=== PATIENT | male | born 1965 | race Caucasian/White ===

== ENCOUNTER 2017-01-14 14:08 | Inpatient (IN) | payer MEDICAID, OTHER ==
[~2017-01-14] VITALS: Ht 167.6 cm; Wt 101.9 kg
[~2017-01-14 14:08] MED LIST: CITA10TA68 PO; FLUP10 PO; IPRA4AER IH; METF10002 PO; TRIH5TAB2 PO
[2017-01-14] MEDS ORDERED: ARIP15TA2 PO (14:21)
[2017-01-14] MEDS ORDERED: OLAN10TA3 PO ×2 (14:21)
[2017-01-14] MEDS ORDERED: HALO2 PO (14:21)
[2017-01-14] MEDS ORDERED: DIVA500T35 PO (14:21)
[2017-01-14] MEDS ORDERED: DIPH50 PO (14:21)
[2017-01-14] MEDS ORDERED: RISP3 PO (14:21)
[2017-01-14 14:54] LABS: BASOPHILS # (AUTO) 0.05 K/uL (0.00-0.20); BASOPHILS % (AUTO) 0.6 % (0.0-2.0); EOSINOPHILS # (AUTO) 0.18 K/uL (0.00-0.70); EOSINOPHILS % (AUTO) 2.39 % (1.0-6.0); HEMATOCRIT 41.4 % (41-53); HEMOGLOBIN 14.4 g/dL (13.5-17.5); LYMPHOCYTES # (AUTO) 2.9 K/uL (1.0-4.8); LYMPHOCYTES % (AUTO) 38.3 % (22.0-44.0); MEAN CORPUSCULAR HEMOGLOBIN 31.7 pg (26.0-34.0); MEAN CORPUSCULAR HGB CONC 34.7 G/dL (31.0-37.0); MEAN CORPUSCULAR VOLUME 91 fL (80-100); MONOCYTES # (AUTO) 0.4 K/uL (0.1-1.0); MONOCYTES % (AUTO) 5.8 % (2.0-9.0); NEUTROPHILS % (AUTO) 52.9 % (40.0-70.0); PLATELET COUNT (AUTO) 123 K/uL (150-450); RED BLOOD CELL COUNT(AUTO) 4.54 MIL/uL (4.50-5.90); RED CELL DISTRIBUTION WIDTH 16.2 % (11.5-14.5); WHITE BLOOD COUNT (AUTO) 7.6 K/uL (4.5-11.0)
[2017-01-14 15:07] LABS: ANION GAP 6 mmol/L (8-16); CALCIUM, TOTAL 8.5 mg/dL (8.8-10.5); CARBON DIOXIDE 32 mmol/L (22-29); CHLORIDE 107 mmol/L (98-107); CREATININE 1.05 mg/dL (0.60-1.30); GLOMERULAR FILTR. RATE CALC > 60 mL/min (>60); POTASSIUM 4.1 mmol/L (3.5-5.1); SODIUM SERUM 145 mmol/L (136-145); UREA NITROGEN, BLOOD 11 mg/dL (7-18)
[2017-01-14 15:14] LABS: ALANINE AMINOTRANSFERASE 11 U/L (12-78); ALBUMIN 3.6 g/dL (3.4-5.0); ASPARTATE AMINOTRANSFERASE 8 U/L (15-37); BILIRUBIN,TOTAL 0.2 mg/dL (0.1-1.0); TOTAL PROTEIN, SERUM 6.8 g/dL (6.4-8.2)
[2017-01-14 17:06] VITALS: BP 147/86
[2017-01-14] MEDS: OLANZapine 10 MG TABLET PO SCH (19:14)
[2017-01-14] MEDS: DiphenhydrAMINE HCL 25 MG CAPSULE PO SCH (19:14)
[2017-01-14] MEDS: DIVALPROEX SODIUM 500 MG ER TABLET PO SCH (19:14)
[2017-01-15 05:43] LABS: GLUCOSE COMMENT 1 Received Meds; GLUCOSE,POINT OF CARE 94 MG/DL (70-110)
[2017-01-15] MEDS ORDERED: PNEUMOCOCCAL VACCINE POLYVALENT 0.5 ML VIAL [PPSV23] IM ONE (05:45)
[2017-01-15 08:00] LABS: CHOL/HDL RATIO 4.2 (4.2-7.3); THYROID STIMULATING HORMONE 2.06 uIU/mL (0.36-3.74)
[2017-01-15 08:15] VITALS: BP 160/94
[2017-01-15] MEDS: DIVALPROEX SODIUM 500 MG ER TABLET PO SCH ×2 (09:09→17:19)
[2017-01-15] MEDS: DiphenhydrAMINE HCL 25 MG CAPSULE PO SCH ×2 (09:09→17:19)
[2017-01-15] MEDS: FLUoxetine HCL 20 MG CAPSULE PO SCH (09:09)
[2017-01-15] MEDS: OLANZapine 10 MG TABLET PO SCH ×2 (09:09→17:19)
[2017-01-15] MEDS ORDERED: ACETAMINOPHEN 325 MG TABLET PO PRN (17:00)
[2017-01-15] MEDS ORDERED: ALBUTEROL SULFATE/IPRATROPIUM 100-20 MCG/SPRAY 4 GM INHALER IH PRN (17:00)
[2017-01-15] MEDS ORDERED: IBUPROFEN 400 MG TABLET PO PRN (17:00)
[2017-01-15] MEDS ORDERED: ZOLPIDEM TARTRATE 10 MG TABLET PO PRN (17:15)
[2017-01-15] MEDS ORDERED: HALOPERIDOL 5 MG TABLET PO PRN (17:15)
[2017-01-16 08:15] VITALS: BP 121/66
[2017-01-16] MEDS: FLUoxetine HCL 20 MG CAPSULE PO SCH (10:47)
[2017-01-16] MEDS: DiphenhydrAMINE HCL 25 MG CAPSULE PO SCH ×2 (10:47→16:26)
[2017-01-16] MEDS: DIVALPROEX SODIUM 500 MG ER TABLET PO SCH ×2 (10:47→16:26)
[2017-01-16] MEDS: OLANZapine 10 MG TABLET PO SCH ×2 (10:47→16:26)
[2017-01-16] MEDS: AmLODIPine BESYLATE 2.5 MG TABLET PO SCH (10:47)
[2017-01-16 16:28] VITALS: BP 140/91
[2017-01-16] MEDS: LORazepam 2 MG TABLET PO PRN (20:25)
[2017-01-17 06:19] LABS: BASOPHILS % (AUTO) 0.3 % (0.0-2.0); EOSINOPHILS % (AUTO) 1.8 % (1.0-6.0); HEMATOCRIT 44.2 % (41-53); HEMOGLOBIN 15.2 g/dL (13.5-17.5); LYMPHOCYTES # (AUTO) 3.2 K/uL (1.0-4.8); LYMPHOCYTES % (AUTO) 42.1 % (22.0-44.0); MEAN CORPUSCULAR HEMOGLOBIN 31.5 pg (26.0-34.0); MEAN CORPUSCULAR HGB CONC 34.3 G/dL (31.0-37.0); MEAN CORPUSCULAR VOLUME 92 fL (80-100); MONOCYTES # (AUTO) 0.5 K/uL (0.1-1.0); MONOCYTES % (AUTO) 6.3 % (2.0-9.0); NEUTROPHILS # (AUTO) 3.8 K/uL (1.8-7.7); NEUTROPHILS % (AUTO) 49.5 % (40.0-70.0); PLATELET COUNT (AUTO) 137 K/uL (150-450); RED BLOOD CELL COUNT(AUTO) 4.81 MIL/uL (4.50-5.90); RED CELL DISTRIBUTION WIDTH 15.9 % (11.5-14.5); WHITE BLOOD COUNT (AUTO) 7.7 K/uL (4.5-11.0)
[2017-01-17 06:27] LABS: ALANINE AMINOTRANSFERASE 15 U/L (12-78); ALBUMIN 3.4 g/dL (3.4-5.0); ANION GAP 4 mmol/L (8-16); ASPARTATE AMINOTRANSFERASE 11 U/L (15-37); BILIRUBIN,TOTAL 0.2 mg/dL (0.1-1.0); CALCIUM, TOTAL 8.6 mg/dL (8.8-10.5); CARBON DIOXIDE 34 mmol/L (22-29); CHLORIDE 103 mmol/L (98-107); CREATININE 0.87 mg/dL (0.60-1.30); GLOMERULAR FILTR. RATE CALC > 60 mL/min (>60); POTASSIUM 4.4 mmol/L (3.5-5.1); SODIUM SERUM 141 mmol/L (136-145); TOTAL PROTEIN, SERUM 6.3 g/dL (6.4-8.2); UREA NITROGEN, BLOOD 21 mg/dL (7-18); VALPROIC ACID 51 mcg/mL (50-100)
[2017-01-17 08:15] VITALS: BP 139/95
[2017-01-17] MEDS: DIVALPROEX SODIUM 500 MG ER TABLET PO SCH ×2 (08:19→16:31)
[2017-01-17] MEDS: AmLODIPine BESYLATE 2.5 MG TABLET PO SCH (08:19)
[2017-01-17] MEDS: FLUoxetine HCL 20 MG CAPSULE PO SCH (08:19)
[2017-01-17] MEDS: OLANZapine 10 MG TABLET PO SCH ×2 (08:19→16:31)
[2017-01-17] MEDS: DiphenhydrAMINE HCL 25 MG CAPSULE PO SCH ×2 (08:19→16:31)
[2017-01-17 12:17] LABS: GLUCOSE COMMENT 1 FASTING; GLUCOSE,POINT OF CARE 102 MG/DL (70-110)
[2017-01-17 17:16] VITALS: BP 131/91
[2017-01-18 06:04] LABS: GLUCOSE COMMENT 1 FASTING; GLUCOSE,POINT OF CARE 84 MG/DL (70-110)
[2017-01-18 08:30] VITALS: BP 140/96
[2017-01-18] MEDS: FLUoxetine HCL 20 MG CAPSULE PO SCH (08:30)
[2017-01-18] MEDS: AmLODIPine BESYLATE 2.5 MG TABLET PO SCH (08:31)
[2017-01-18] MEDS: DIVALPROEX SODIUM 500 MG ER TABLET PO SCH ×2 (08:31→16:17)
[2017-01-18] MEDS: OLANZapine 10 MG TABLET PO SCH ×2 (08:31→16:17)
[2017-01-18] MEDS: DiphenhydrAMINE HCL 25 MG CAPSULE PO SCH ×2 (08:31→16:17)
[2017-01-18 11:57] LABS: GLUCOSE,POINT OF CARE 93 MG/DL (70-110)
[2017-01-18 17:16] VITALS: BP 131/78
[2017-01-19 05:52] LABS: GLUCOSE,POINT OF CARE 97 MG/DL (70-110)
[2017-01-19 08:11] VITALS: BP 121/79
[2017-01-19] MEDS: FLUoxetine HCL 20 MG CAPSULE PO SCH (08:47)
[2017-01-19] MEDS: DiphenhydrAMINE HCL 25 MG CAPSULE PO SCH ×2 (08:47→16:07)
[2017-01-19] MEDS: DIVALPROEX SODIUM 500 MG ER TABLET PO SCH ×2 (08:48→16:07)
[2017-01-19] MEDS: AmLODIPine BESYLATE 2.5 MG TABLET PO SCH (08:48)
[2017-01-19] MEDS: OLANZapine 10 MG TABLET PO SCH ×2 (08:48→16:07)
[2017-01-19 12:32] LABS: GLUCOSE COMMENT 1 Received Meds; GLUCOSE,POINT OF CARE 110 MG/DL (70-110)
[2017-01-19 16:45] VITALS: BP 121/88
[2017-01-20 06:02] LABS: GLUCOSE,POINT OF CARE 119 MG/DL (70-110)
[2017-01-20 08:09] VITALS: BP 122/79
[2017-01-20] MEDS: DIVALPROEX SODIUM 500 MG ER TABLET PO SCH ×2 (09:30→16:27)
[2017-01-20] MEDS: FLUoxetine HCL 20 MG CAPSULE PO SCH (09:31)
[2017-01-20] MEDS: DiphenhydrAMINE HCL 25 MG CAPSULE PO SCH ×2 (09:31→16:27)
[2017-01-20] MEDS: OLANZapine 10 MG TABLET PO SCH ×2 (09:31→16:28)
[2017-01-20] MEDS: AmLODIPine BESYLATE 2.5 MG TABLET PO SCH (09:32)
[2017-01-20 16:32] LABS: GLUCOSE,POINT OF CARE 104 MG/DL (70-110)
[2017-01-20 18:35] VITALS: BP 105/60
[2017-01-20 21:27] LABS: GLUCOSE,POINT OF CARE 120 MG/DL (70-110)
[2017-01-21 06:08] LABS: GLUCOSE,POINT OF CARE 102 MG/DL (70-110)
[2017-01-21 08:17] VITALS: BP 122/77
[2017-01-21] MEDS: DiphenhydrAMINE HCL 25 MG CAPSULE PO SCH ×2 (08:59→17:07)
[2017-01-21] MEDS: FLUoxetine HCL 20 MG CAPSULE PO SCH (09:00)
[2017-01-21] MEDS: OLANZapine 10 MG TABLET PO SCH ×2 (09:00→17:07)
[2017-01-21] MEDS: AmLODIPine BESYLATE 2.5 MG TABLET PO SCH (09:00)
[2017-01-21] MEDS: DIVALPROEX SODIUM 500 MG ER TABLET PO SCH ×2 (09:00→17:07)
[2017-01-21 17:00] VITALS: BP 139/98
[2017-01-22 08:47] VITALS: BP 118/76
[2017-01-22] MEDS: FLUoxetine HCL 20 MG CAPSULE PO SCH (09:04)
[2017-01-22] MEDS: DIVALPROEX SODIUM 500 MG ER TABLET PO SCH ×2 (09:04→16:29)
[2017-01-22] MEDS: OLANZapine 10 MG TABLET PO SCH ×2 (09:04→16:30)
[2017-01-22] MEDS: AmLODIPine BESYLATE 2.5 MG TABLET PO SCH (09:04)
[2017-01-22] MEDS: DiphenhydrAMINE HCL 25 MG CAPSULE PO SCH ×2 (09:04→16:30)
[2017-01-22 17:06] VITALS: BP 124/82
[2017-01-23 08:39] VITALS: BP 139/84
[2017-01-23] MEDS: OLANZapine 10 MG TABLET PO SCH ×2 (09:01→16:31)
[2017-01-23] MEDS: DiphenhydrAMINE HCL 25 MG CAPSULE PO SCH ×2 (09:01→16:32)
[2017-01-23] MEDS: DIVALPROEX SODIUM 500 MG ER TABLET PO SCH ×2 (09:01→16:32)
[2017-01-23] MEDS: AmLODIPine BESYLATE 2.5 MG TABLET PO SCH (09:02)
[2017-01-23] MEDS: FLUoxetine HCL 20 MG CAPSULE PO SCH (09:02)
[2017-01-23 16:30] VITALS: BP 138/92
[2017-01-24] MEDS: AmLODIPine BESYLATE 2.5 MG TABLET PO SCH (07:57)
[2017-01-24] MEDS: OLANZapine 10 MG TABLET PO SCH ×2 (07:57→16:18)
[2017-01-24] MEDS: DiphenhydrAMINE HCL 25 MG CAPSULE PO SCH ×2 (07:57→16:18)
[2017-01-24] MEDS: DIVALPROEX SODIUM 500 MG ER TABLET PO SCH ×2 (07:57→16:18)
[2017-01-24] MEDS: FLUoxetine HCL 20 MG CAPSULE PO SCH (07:57)
[2017-01-24 09:17] VITALS: BP 125/81
[2017-01-24 16:37] VITALS: BP 109/68
[2017-01-25] MEDS ORDERED: DIVA500T52 PO (08:14)
[2017-01-25] MEDS ORDERED: DIPH50 PO (08:15)
[2017-01-25] MEDS ORDERED: OLAN10TA3 PO (08:16)
[2017-01-25] MEDS ORDERED: FLUO-191 PO (08:16)
[2017-01-25] MEDS ORDERED: AMLO2.5T PO (08:19)
[2017-01-25 08:45] VITALS: BP 112/68
[2017-01-25] MEDS: DiphenhydrAMINE HCL 25 MG CAPSULE PO SCH ×2 (09:06→16:02)
[2017-01-25] MEDS: AmLODIPine BESYLATE 2.5 MG TABLET PO SCH (09:07)
[2017-01-25] MEDS: DIVALPROEX SODIUM 500 MG ER TABLET PO SCH ×2 (09:07→16:02)
[2017-01-25] MEDS: FLUoxetine HCL 20 MG CAPSULE PO SCH (09:07)
[2017-01-25] MEDS: OLANZapine 10 MG TABLET PO SCH ×2 (09:07→16:02)
[2017-01-25 18:56] VITALS: BP 105/59
[2017-01-25] MEDS: LORazepam 2 MG TABLET PO PRN (20:23)
[2017-01-26 08:43] VITALS: BP 106/67
[2017-01-26] MEDS: AmLODIPine BESYLATE 2.5 MG TABLET PO SCH (08:45)
[2017-01-26] MEDS: FLUoxetine HCL 20 MG CAPSULE PO SCH (08:45)
[2017-01-26] MEDS: DIVALPROEX SODIUM 500 MG ER TABLET PO SCH (08:45)
[2017-01-26] MEDS: OLANZapine 10 MG TABLET PO SCH (08:45)
[2017-01-26] MEDS: DiphenhydrAMINE HCL 25 MG CAPSULE PO SCH (08:45)
== END 2017-01-26 14:02 | disposition home or self-care (01) | DRG 750 ==
LOC: EMS 14:09 → 3EI 16:20
PROVIDERS: ADMIT Psychiatry & Neurology Psychiatry; ATTEND Psychiatry & Neurology Psychiatry
DX: F20.0 Paranoid schizophrenia (principal); R45.850 Homicidal ideations; R45.851 Suicidal ideations; I10 Essential (primary) hypertension; E11.9 Type 2 diabetes mellitus without complications; B18.2 Chronic viral hepatitis C; F41.9 Anxiety disorder, unspecified; J45.909 Unspecified asthma, uncomplicated; Z28.21 Immunization not carried out because of patient refusal
CPT/HCPCS: 82962; 84436; 84439; 84443; 99285; G0480

== ENCOUNTER 2017-01-31 10:40 | Inpatient (IN) | payer MEDICAID, OTHER ==
[~2017-01-31] VITALS: Ht 170.2 cm; Wt 108.0 kg
[~2017-01-31 10:40] MED LIST changes: +AMLO2.5T PO; -CITA10TA68 PO; +DIPH50 PO; +DIVA500T52 PO; +FLUO-191 PO; -FLUP10 PO; -IPRA4AER IH; -METF10002 PO; +OLAN10TA3 PO; -TRIH5TAB2 PO
[2017-01-31 12:04] LABS: BASOPHILS % (AUTO) 0.5 % (0.0-2.0); EOSINOPHILS % (AUTO) 1.2 % (1.0-6.0); HEMATOCRIT 40.2 % (41-53); HEMOGLOBIN 13.9 g/dL (13.5-17.5); LYMPHOCYTES # (AUTO) 2.3 K/uL (1.0-4.8); LYMPHOCYTES % (AUTO) 25.7 % (22.0-44.0); MEAN CORPUSCULAR HEMOGLOBIN 31.8 pg (26.0-34.0); MEAN CORPUSCULAR HGB CONC 34.6 G/dL (31.0-37.0); MEAN CORPUSCULAR VOLUME 92 fL (80-100); MONOCYTES # (AUTO) 0.4 K/uL (0.1-1.0); MONOCYTES % (AUTO) 4.4 % (2.0-9.0); NEUTROPHILS # (AUTO) 6.1 K/uL (1.8-7.7); NEUTROPHILS % (AUTO) 68.2 % (40.0-70.0); PLATELET COUNT (AUTO) 186 K/uL (150-450); RED BLOOD CELL COUNT(AUTO) 4.37 MIL/uL (4.50-5.90); RED CELL DISTRIBUTION WIDTH 15.3 % (11.5-14.5); WHITE BLOOD COUNT (AUTO) 8.9 K/uL (4.5-11.0)
[2017-01-31 12:13] LABS: ANION GAP 5 mmol/L (8-16); CALCIUM, TOTAL 8.5 mg/dL (8.8-10.5); CARBON DIOXIDE 30 mmol/L (22-29); CHLORIDE 104 mmol/L (98-107); GLOMERULAR FILTR. RATE CALC > 60 mL/min (>60); POTASSIUM 3.9 mmol/L (3.5-5.1); SODIUM SERUM 139 mmol/L (136-145); UREA NITROGEN, BLOOD 12 mg/dL (7-18)
[2017-01-31 12:21] LABS: ALANINE AMINOTRANSFERASE 18 U/L (12-78); ALBUMIN 3.6 g/dL (3.4-5.0); ASPARTATE AMINOTRANSFERASE 11 U/L (15-37); BILIRUBIN,TOTAL 0.2 mg/dL (0.1-1.0); TOTAL PROTEIN, SERUM 7.1 g/dL (6.4-8.2)
[2017-01-31] MEDS ORDERED: OLANZapine 5 MG TABLET PO ONE (12:30)
[2017-01-31] MEDS ORDERED: HALOPERIDOL 5 MG TABLET PO PRN (13:00)
[2017-01-31] MEDS ORDERED: ZOLPIDEM TARTRATE 10 MG TABLET PO PRN (13:00)
[2017-01-31] MEDS ORDERED: LORazepam 2 MG TABLET PO PRN (13:00)
[2017-01-31 18:10] VITALS: BP 120/87
[2017-01-31] MEDS: DiphenhydrAMINE HCL 25 MG CAPSULE PO SCH (18:28)
[2017-01-31] MEDS: DIVALPROEX SODIUM 500 MG ER TABLET PO SCH (18:28)
[2017-01-31] MEDS: OLANZapine 10 MG TABLET PO SCH (18:28)
[2017-02-01 00:30] VITALS: BP 110/69
[2017-02-01] MEDS ORDERED: INFLUENZA VIRUS VACCINE QVS 2017-18 (3YR+)/PF 60 MCG/0.5 ML SYRINGE IM ONE (04:30)
[2017-02-01] MEDS: DiphenhydrAMINE HCL 25 MG CAPSULE PO SCH ×2 (09:09→16:19)
[2017-02-01] MEDS: DIVALPROEX SODIUM 500 MG ER TABLET PO SCH ×2 (09:09→16:19)
[2017-02-01] MEDS: OLANZapine 10 MG TABLET PO SCH ×2 (09:10→16:20)
[2017-02-01] MEDS: FLUoxetine HCL 20 MG CAPSULE PO SCH (09:10)
[2017-02-01 09:54] VITALS: BP 134/71
[2017-02-01] MEDS ORDERED: ACETAMINOPHEN 325 MG TABLET PO PRN (12:30)
[2017-02-01 14:42] VITALS: BP 129/82
[2017-02-01] MEDS: IBUPROFEN 400 MG TABLET PO PRN ×2 (14:45→23:43)
[2017-02-01 16:16] VITALS: BP 116/75
[2017-02-02 00:45] VITALS: BP 117/73
[2017-02-02 08:12] LABS: CHOL/HDL RATIO 3.6 (4.2-7.3); THYROID STIMULATING HORMONE 3.38 uIU/mL (0.36-3.74)
[2017-02-02 08:14] LABS: HEMOGLOBIN A1C 5.8 % (4.5-6.2)
[2017-02-02 08:20] VITALS: BP 127/69
[2017-02-02] MEDS: DiphenhydrAMINE HCL 25 MG CAPSULE PO SCH ×2 (09:11→16:20)
[2017-02-02] MEDS: DIVALPROEX SODIUM 500 MG ER TABLET PO SCH ×2 (09:11→16:20)
[2017-02-02] MEDS: FLUoxetine HCL 20 MG CAPSULE PO SCH (09:11)
[2017-02-02] MEDS: OLANZapine 10 MG TABLET PO SCH ×2 (09:11→16:21)
[2017-02-02] MEDS: AmLODIPine BESYLATE 2.5 MG TABLET PO SCH (09:12)
[2017-02-02] MEDS: IBUPROFEN 400 MG TABLET PO PRN ×2 (09:35→18:27)
[2017-02-02 16:45] VITALS: BP 120/74
[2017-02-03] MEDS: IBUPROFEN 400 MG TABLET PO PRN (05:59)
[2017-02-03] MEDS: DiphenhydrAMINE HCL 25 MG CAPSULE PO SCH ×2 (08:48→16:18)
[2017-02-03] MEDS: DIVALPROEX SODIUM 500 MG ER TABLET PO SCH ×2 (08:48→16:18)
[2017-02-03] MEDS: FLUoxetine HCL 20 MG CAPSULE PO SCH (08:48)
[2017-02-03] MEDS: OLANZapine 10 MG TABLET PO SCH ×2 (08:48→16:19)
[2017-02-03 09:00] VITALS: BP 114/78
[2017-02-03] MEDS: AmLODIPine BESYLATE 2.5 MG TABLET PO SCH (10:23)
[2017-02-03 16:34] VITALS: BP 115/68
[2017-02-04 01:34] VITALS: BP 117/80
[2017-02-04] MEDS: IBUPROFEN 400 MG TABLET PO PRN (01:42)
[2017-02-04] MEDS: DIVALPROEX SODIUM 500 MG ER TABLET PO SCH ×2 (08:02→16:43)
[2017-02-04] MEDS: AmLODIPine BESYLATE 2.5 MG TABLET PO SCH (08:02)
[2017-02-04] MEDS: DiphenhydrAMINE HCL 25 MG CAPSULE PO SCH ×2 (08:02→16:44)
[2017-02-04] MEDS: FLUoxetine HCL 20 MG CAPSULE PO SCH (08:02)
[2017-02-04] MEDS: OLANZapine 10 MG TABLET PO SCH ×2 (08:04→16:44)
[2017-02-04 08:45] VITALS: BP 121/77
[2017-02-04 16:20] VITALS: BP 121/76
[2017-02-05 06:48] VITALS: BP 116/71
[2017-02-05] MEDS: OLANZapine 10 MG TABLET PO SCH ×2 (08:53→16:23)
[2017-02-05] MEDS: DiphenhydrAMINE HCL 25 MG CAPSULE PO SCH ×2 (08:53→16:22)
[2017-02-05] MEDS: FLUoxetine HCL 20 MG CAPSULE PO SCH (08:53)
[2017-02-05] MEDS: AmLODIPine BESYLATE 2.5 MG TABLET PO SCH (08:53)
[2017-02-05] MEDS: DIVALPROEX SODIUM 500 MG ER TABLET PO SCH ×2 (08:53→16:22)
[2017-02-05 08:57] VITALS: BP 114/78
[2017-02-05 16:21] VITALS: BP 134/89
[2017-02-05 20:00] VITALS: BP 130/80
[2017-02-06 08:30] VITALS: BP 124/78
[2017-02-06] MEDS: DIVALPROEX SODIUM 500 MG ER TABLET PO SCH ×2 (08:34→17:47)
[2017-02-06] MEDS: OLANZapine 10 MG TABLET PO SCH ×2 (08:35→17:47)
[2017-02-06] MEDS: FLUoxetine HCL 20 MG CAPSULE PO SCH (08:35)
[2017-02-06] MEDS: AmLODIPine BESYLATE 2.5 MG TABLET PO SCH (08:35)
[2017-02-06] MEDS: DiphenhydrAMINE HCL 25 MG CAPSULE PO SCH ×2 (08:35→17:47)
[2017-02-06] MEDS: IBUPROFEN 400 MG TABLET PO PRN (08:36)
[2017-02-06 16:48] VITALS: BP 136/96
[2017-02-07 08:05] VITALS: BP 127/86
[2017-02-07] MEDS: DIVALPROEX SODIUM 500 MG ER TABLET PO SCH ×2 (09:48→16:21)
[2017-02-07] MEDS: DiphenhydrAMINE HCL 25 MG CAPSULE PO SCH ×2 (09:48→16:21)
[2017-02-07] MEDS: FLUoxetine HCL 20 MG CAPSULE PO SCH (09:48)
[2017-02-07] MEDS: AmLODIPine BESYLATE 2.5 MG TABLET PO SCH (09:48)
[2017-02-07] MEDS: OLANZapine 10 MG TABLET PO SCH ×2 (09:49→16:21)
[2017-02-07 19:08] VITALS: BP 133/93
[2017-02-08] MEDS: DiphenhydrAMINE HCL 25 MG CAPSULE PO SCH ×2 (08:58→16:05)
[2017-02-08] MEDS: FLUoxetine HCL 20 MG CAPSULE PO SCH (08:58)
[2017-02-08] MEDS: OLANZapine 10 MG TABLET PO SCH ×2 (08:59→16:05)
[2017-02-08] MEDS: DIVALPROEX SODIUM 500 MG ER TABLET PO SCH ×2 (08:59→16:05)
[2017-02-08] MEDS: AmLODIPine BESYLATE 2.5 MG TABLET PO SCH (08:59)
[2017-02-08 09:00] VITALS: BP 159/91
[2017-02-08 18:16] VITALS: BP 138/90
[2017-02-09 06:39] VITALS: BP 119/83
[2017-02-09 08:00] VITALS: BP 125/47
[2017-02-09] MEDS: FLUoxetine HCL 20 MG CAPSULE PO SCH (09:30)
[2017-02-09] MEDS: OLANZapine 10 MG TABLET PO SCH ×2 (09:30→16:13)
[2017-02-09] MEDS: DiphenhydrAMINE HCL 25 MG CAPSULE PO SCH ×2 (09:30→16:13)
[2017-02-09] MEDS: AmLODIPine BESYLATE 2.5 MG TABLET PO SCH (09:30)
[2017-02-09] MEDS: DIVALPROEX SODIUM 500 MG ER TABLET PO SCH ×2 (09:30→16:13)
[2017-02-09 16:31] VITALS: BP 131/77
[2017-02-10 08:00] VITALS: BP 132/77
[2017-02-10] MEDS: DIVALPROEX SODIUM 500 MG ER TABLET PO SCH ×2 (10:49→17:41)
[2017-02-10] MEDS: OLANZapine 10 MG TABLET PO SCH ×2 (10:49→17:42)
[2017-02-10] MEDS: AmLODIPine BESYLATE 2.5 MG TABLET PO SCH (10:49)
[2017-02-10] MEDS: FLUoxetine HCL 20 MG CAPSULE PO SCH (10:49)
[2017-02-10] MEDS: DiphenhydrAMINE HCL 25 MG CAPSULE PO SCH ×2 (10:50→17:42)
[2017-02-10 18:49] VITALS: BP 119/78
[2017-02-11 06:48] VITALS: BP 128/80
[2017-02-11 08:00] VITALS: BP 101/62
[2017-02-11] MEDS: FLUoxetine HCL 20 MG CAPSULE PO SCH (09:01)
[2017-02-11] MEDS: OLANZapine 10 MG TABLET PO SCH ×2 (09:01→17:35)
[2017-02-11] MEDS: DIVALPROEX SODIUM 500 MG ER TABLET PO SCH ×2 (09:01→17:35)
[2017-02-11] MEDS: DiphenhydrAMINE HCL 25 MG CAPSULE PO SCH ×2 (09:01→17:35)
[2017-02-11] MEDS: AmLODIPine BESYLATE 2.5 MG TABLET PO SCH (09:01)
[2017-02-11 16:23] VITALS: BP 117/73
[2017-02-12] MEDS: DiphenhydrAMINE HCL 25 MG CAPSULE PO SCH (10:05)
[2017-02-12] MEDS: OLANZapine 10 MG TABLET PO SCH (10:06)
[2017-02-12] MEDS: AmLODIPine BESYLATE 2.5 MG TABLET PO SCH (10:06)
[2017-02-12] MEDS: DIVALPROEX SODIUM 500 MG ER TABLET PO SCH (10:06)
[2017-02-12] MEDS: FLUoxetine HCL 20 MG CAPSULE PO SCH (10:06)
== END 2017-02-12 10:30 | disposition home or self-care (01) | DRG 750 ==
LOC: EMS 10:42 → B2S 15:58 → 3EI 02-05 18:05
PROVIDERS: ATTEND Psychiatry & Neurology Psychiatry
DX: F20.0 Paranoid schizophrenia (principal); R45.850 Homicidal ideations; R45.851 Suicidal ideations; I10 Essential (primary) hypertension; E11.9 Type 2 diabetes mellitus without complications; F10.10 Alcohol abuse, uncomplicated; J45.909 Unspecified asthma, uncomplicated; F17.200 Nicotine dependence, unspecified, uncomplicated; Z71.41 Alcohol abuse counseling and surveillance of alcoholic; Z28.21 Immunization not carried out because of patient refusal
CPT/HCPCS: 83036; 84443; 87081; 90471; 99285; G0480

== ENCOUNTER 2022-03-19 19:40 | Inpatient (IN) | payer MEDICAID, OTHER ==
[~2022-03-19] VITALS: Ht 167.6 cm; Wt 98.0 kg
[~2022-03-19 19:40] MED LIST changes: -AMLO2.5T PO; +AMLO2.5T96 PO; +DIVA-80 PO; -DIVA500T52 PO; +FLUO-177 PO; -FLUO-191 PO; -OLAN10TA3 PO; +OLAN10TA74 PO
[2022-03-19] MEDS ORDERED: HALOPERIDOL LACTATE 5 MG/ML VIAL IM ONE (22:15)
[2022-03-19] MEDS ORDERED: LORazepam 2 MG/ML VIAL IM ONE (22:15)
[2022-03-19] MEDS ORDERED: DiphenhydrAMINE HCL 50 MG/ML VIAL IM ONE (22:15)
[2022-03-19] MEDS ORDERED: CLON-592 PO (22:48)
[2022-03-19] MEDS ORDERED: DIVA-112 PO (22:48)
[2022-03-19] MEDS ORDERED: FURO40 PO (22:48)
[2022-03-19] MEDS ORDERED: METF-1211 PO (22:48)
[2022-03-19] MEDS ORDERED: ATOR40TA28 PO (22:48)
[2022-03-19] MEDS ORDERED: BECL10.6 IH (22:48)
[2022-03-19] MEDS ORDERED: QUET200T PO (22:48)
[2022-03-19] MEDS ORDERED: DIPH50CA35 PO (22:48)
[2022-03-19] MEDS ORDERED: CETI-450 PO (22:48)
[2022-03-19] MEDS ORDERED: TRAZ-257 PO (22:48)
[2022-03-19] MEDS ORDERED: METO25XL PO (22:48)
[2022-03-19] MEDS ORDERED: AMLO-258 PO (22:48)
[2022-03-19] MEDS ORDERED: HALO10TA21 PO (22:48)
[2022-03-19 23:03] LABS: BASOPHILS % (AUTO) 0.5 % (0.0-2.0); EOSINOPHILS % (AUTO) 0.9 % (1.0-6.0); HEMATOCRIT 36.3 % (41-53); HEMOGLOBIN 11.7 g/dL (13.5-17.5); LYMPHOCYTES # (AUTO) 1.9 K/uL (1.0-4.8); LYMPHOCYTES % (AUTO) 29.3 % (22.0-44.0); MEAN CORPUSCULAR HEMOGLOBIN 30.7 pg (26.0-34.0); MEAN CORPUSCULAR HGB CONC 32.3 G/dL (31.0-37.0); MEAN CORPUSCULAR VOLUME 95 fL (80-100); MONOCYTES # (AUTO) 0.4 K/uL (0.1-1.0); MONOCYTES % (AUTO) 5.7 % (2.0-9.0); NEUTROPHILS # (AUTO) 4.1 K/uL (1.8-7.7); NEUTROPHILS % (AUTO) 63.6 % (40.0-70.0); PLATELET COUNT (AUTO) 146 K/uL (150-450); RED BLOOD CELL COUNT(AUTO) 3.82 MIL/uL (4.50-5.90); RED CELL DISTRIBUTION WIDTH 14.9 % (11.5-14.5)
[2022-03-19 23:30] LABS: ANION GAP 6 mmol/L (8-16); CALCIUM, TOTAL 9.3 mg/dL (8.8-10.5); CARBON DIOXIDE 31 mmol/L (22-29); CHLORIDE 107 mmol/L (98-107); CREATININE 0.95 mg/dL (0.60-1.30); GLOMERULAR FILTR. RATE CALC > 60 mL/min (>60); GLUCOSE,RANDOM 117 mg/dL (70-110); POTASSIUM 3.4 mmol/L (3.5-5.1); SODIUM SERUM 144 mmol/L (136-145); UREA NITROGEN, BLOOD 19 mg/dL (7-18)
[2022-03-19 23:37] LABS: ALANINE AMINOTRANSFERASE 29 U/L (12-78); ALBUMIN 3.6 g/dL (3.4-5.0); ALKALINE PHOSPHATASE 80 U/L (46-116); ASPARTATE AMINOTRANSFERASE 24 U/L (15-37); BILIRUBIN,TOTAL 0.3 mg/dL (0.1-1.0); TOTAL PROTEIN, SERUM 6.7 g/dL (6.4-8.2)
[2022-03-20 00:12] LABS: COVID AG,FIA SOURCE NASOPHARYNGEAL
[2022-03-20] MEDS ORDERED: LORazepam 2 MG TABLET PO PRN (01:00)
[2022-03-20] MEDS ORDERED: ZOLPIDEM TARTRATE 10 MG TABLET PO PRN (01:00)
[2022-03-20] MEDS ORDERED: POTASSIUM CHLORIDE 20 MEQ ER TABLET PO ONE (02:00)
[2022-03-20] MEDS: HALOPERIDOL 5 MG TABLET PO PRN (02:25)
[2022-03-20 07:58] LABS: APPEARANCE,URINE CLEAR (CLEAR); BILIRUBIN,URINE NEGATIVE (NEGATIVE); GLUCOSE, URINE (UA) NEGATIVE (NEGATIVE); KETONES,URINE TRACE mg/dL (NEGATIVE); LEUKOCYTE ESTERASE ,URINE SMALL (NEGATIVE); NITRATE,URINE NEGATIVE (NEGATIVE); OCCULT BLOOD,URINE NEGATIVE (NEGATIVE); PROTEIN,URINE 30-70 mg/dL (NEGATIVE); SPECIFIC GRAVITIY, URINE 1.033 (1.003-1.030)
[2022-03-20 08:08] LABS: AMPHET/METH SCREEN,URINE NEGATIVE (NEGATIVE); BARBITURATE SCREEN, URINE NEGATIVE (NEGATIVE); BENZODIAZEPINES SCREEN,URINE NEGATIVE (NEGATIVE); CANNABINOID SCREEN,URINE NEGATIVE (NEGATIVE); COCAINE SCREEN,URINE NEGATIVE (NEGATIVE); METHADONE SCREEN, URINE NEGATIVE (NEGATIVE); OPIATE SCREEN,URINE NEGATIVE (NEGATIVE); PHENCYCLIDINE SCREEN,URINE NEGATIVE (NEGATIVE)
[2022-03-20 08:14] LABS: BACTERIA,URINE None Seen /HPF (None Seen); RBC,URINE 0-2 /HPF (0-2); SQUAMOUS EPITHELIAL CELL,UR Rare /LPF (None Seen)
[2022-03-20 08:15] LABS: CALCIUM OXALATE CRYSTALS,UR Rare /LPF (None Seen)
[2022-03-20 13:30] VITALS: BP 133/71
[2022-03-20] MEDS ORDERED: NICOTINE 21 MG/24 HOUR PATCH TD PRN (15:30)
[2022-03-20] MEDS: MetFORMIN HCL 500 MG TABLET PO SCH (17:00)
[2022-03-20] MEDS: BECLOMETHASONE DIPR HFA 40 MCG/PUFF 10.6 GM INHALER IH SCH (17:00)
[2022-03-20] MEDS: FUROSEMIDE 40 MG TABLET PO SCH (17:00)
[2022-03-20] MEDS ORDERED: PNEUMOCOCCAL VACCINE POLYVALENT 0.5 ML VIAL [PPSV23] IM. ONE (18:00)
[2022-03-20] MEDS ORDERED: INFLUENZA VIRUS VACCINE QVS 2022-23 (6MO+)/PF 60 MCG/0.5 ML SYRINGE IM. ONE (18:00)
[2022-03-20 20:49] VITALS: BP 132/68
[2022-03-20] MEDS: ATORVASTATIN CALCIUM 40 MG TABLET PO SCH (20:54)
[2022-03-21] MEDS: MetFORMIN HCL 500 MG TABLET PO SCH ×2 (06:35→17:00)
[2022-03-21 08:33] VITALS: BP 137/79
[2022-03-21] MEDS: FUROSEMIDE 40 MG TABLET PO SCH ×2 (09:00→17:00)
[2022-03-21] MEDS: BECLOMETHASONE DIPR HFA 40 MCG/PUFF 10.6 GM INHALER IH SCH ×2 (09:00→17:00)
[2022-03-21] MEDS: METOPROLOL SUCCINATE 25 MG ER TABLET PO SCH (09:00)
[2022-03-21] MEDS: CETIRIZINE HCL 10 MG TABLET PO SCH (09:00)
[2022-03-21] MEDS: AmLODIPine BESYLATE 10 MG TABLET PO SCH (09:00)
[2022-03-21] MEDS ORDERED: LOPERAMIDE HCL 2 MG CAPSULE PO PRN (16:15)
[2022-03-21] MEDS ORDERED: MAG HYDROX/AL HYDROX/SIMETH ES 30 ML SUSPENSION UDCUP PO PRN (16:15)
[2022-03-21] MEDS ORDERED: NICOTINE 14 MG/24 HOUR PATCH TD PRN (16:15)
[2022-03-21] MEDS ORDERED: PETROLATUM,WHITE 28 GM JELLY TP PRN (16:15)
[2022-03-21] MEDS ORDERED: CloNIDine HCL 0.1 MG TABLET PO PRN (16:15)
[2022-03-21] MEDS ORDERED: ONDANSETRON HCL 4 MG TABLET PO PRN (16:15)
[2022-03-21] MEDS ORDERED: ALBUTEROL SULFATE HFA 90 MCG/PUFF 8 GM INHALER IH PRN (16:15)
[2022-03-21] MEDS ORDERED: MAGNESIUM HYDROXIDE SUSPENSION 30 ML UDCUP PO PRN (16:15)
[2022-03-21] MEDS: DIVALPROEX SODIUM 500 MG ER TABLET PO SCH (17:00)
[2022-03-21] MEDS: OLANZapine 10 MG TABLET PO SCH (17:00)
[2022-03-21] MEDS: DiphenhydrAMINE HCL 25 MG CAPSULE PO SCH (17:00)
[2022-03-21] MEDS: ACETAMINOPHEN 325 MG TABLET PO PRN (20:01)
[2022-03-21] MEDS: ATORVASTATIN CALCIUM 40 MG TABLET PO SCH (20:44)
[2022-03-21 20:54] VITALS: BP 132/78
[2022-03-22] MEDS: MetFORMIN HCL 500 MG TABLET PO SCH ×2 (06:48→16:20)
[2022-03-22 07:17] LABS: BASOPHILS % (AUTO) 0.5 % (0.0-2.0); EOSINOPHILS % (AUTO) 1.2 % (1.0-6.0); HEMATOCRIT 38.9 % (41-53); HEMOGLOBIN 13.1 g/dL (13.5-17.5); LYMPHOCYTES # (AUTO) 0.9 K/uL (1.0-4.8); LYMPHOCYTES % (AUTO) 14.2 % (22.0-44.0); MEAN CORPUSCULAR HGB CONC 33.7 G/dL (31.0-37.0); MEAN CORPUSCULAR VOLUME 95 fL (80-100); MONOCYTES # (AUTO) 0.3 K/uL (0.1-1.0); MONOCYTES % (AUTO) 4.5 % (2.0-9.0); NEUTROPHILS # (AUTO) 5.1 K/uL (1.8-7.7); NEUTROPHILS % (AUTO) 79.6 % (40.0-70.0); PLATELET COUNT (AUTO) 154 K/uL (150-450); RED CELL DISTRIBUTION WIDTH 14.5 % (11.5-14.5)
[2022-03-22 07:23] LABS: ANION GAP 7 mmol/L (8-16); CALCIUM, TOTAL 9.4 mg/dL (8.8-10.5); CARBON DIOXIDE 30 mmol/L (22-29); CHLORIDE 103 mmol/L (98-107); CREATININE 0.85 mg/dL (0.60-1.30); GLUCOSE,RANDOM 123 mg/dL (70-110); SODIUM SERUM 140 mmol/L (136-145); UREA NITROGEN, BLOOD 13 mg/dL (7-18)
[2022-03-22 07:25] LABS: GLOMERULAR FILTR. RATE CALC > 60 mL/min (>60)
[2022-03-22] MEDS: FUROSEMIDE 40 MG TABLET PO SCH ×2 (08:19→16:20)
[2022-03-22] MEDS: OLANZapine 10 MG TABLET PO SCH ×2 (08:20→16:20)
[2022-03-22] MEDS: CETIRIZINE HCL 10 MG TABLET PO SCH (08:20)
[2022-03-22] MEDS: DIVALPROEX SODIUM 500 MG ER TABLET PO SCH ×2 (08:20→16:20)
[2022-03-22] MEDS: DiphenhydrAMINE HCL 25 MG CAPSULE PO SCH ×2 (08:20→16:20)
[2022-03-22] MEDS: FLUoxetine HCL 20 MG CAPSULE PO SCH (08:20)
[2022-03-22] MEDS: METOPROLOL SUCCINATE 25 MG ER TABLET PO SCH (08:20)
[2022-03-22] MEDS: AmLODIPine BESYLATE 10 MG TABLET PO SCH (08:20)
[2022-03-22] MEDS: BECLOMETHASONE DIPR HFA 40 MCG/PUFF 10.6 GM INHALER IH SCH ×2 (08:21→16:20)
[2022-03-22] MEDS: ATORVASTATIN CALCIUM 40 MG TABLET PO SCH (20:04)
[2022-03-22 21:49] VITALS: BP 137/85
[2022-03-23] MEDS: MetFORMIN HCL 500 MG TABLET PO SCH ×3 (06:53→17:00)
[2022-03-23] MEDS: DIVALPROEX SODIUM 500 MG ER TABLET PO SCH ×3 (08:26→17:00)
[2022-03-23] MEDS: FUROSEMIDE 40 MG TABLET PO SCH ×3 (08:26→17:00)
[2022-03-23] MEDS: AmLODIPine BESYLATE 10 MG TABLET PO SCH (08:26)
[2022-03-23] MEDS: DiphenhydrAMINE HCL 25 MG CAPSULE PO SCH ×3 (08:26→17:00)
[2022-03-23] MEDS: BECLOMETHASONE DIPR HFA 40 MCG/PUFF 10.6 GM INHALER IH SCH ×3 (08:26→17:00)
[2022-03-23] MEDS: FLUoxetine HCL 20 MG CAPSULE PO SCH (08:27)
[2022-03-23] MEDS: CETIRIZINE HCL 10 MG TABLET PO SCH (08:27)
[2022-03-23] MEDS: METOPROLOL SUCCINATE 25 MG ER TABLET PO SCH (08:27)
[2022-03-23] MEDS: OLANZapine 10 MG TABLET PO SCH ×3 (08:27→17:00)
[2022-03-23 09:13] VITALS: BP 143/89
[2022-03-23] MEDS ORDERED: OLAN20TA35 PO (18:42)
[2022-03-23] MEDS ORDERED: TRAZ150T80 PO (18:42)
[2022-03-23] MEDS ORDERED: FOLI-130 PO (18:42)
[2022-03-23 20:24] VITALS: BP 132/79
[2022-03-23] MEDS: ATORVASTATIN CALCIUM 40 MG TABLET PO SCH (20:26)
[2022-03-24] MEDS: MetFORMIN HCL 500 MG TABLET PO SCH ×2 (06:45→17:00)
[2022-03-24 08:11] VITALS: BP 128/79
[2022-03-24] MEDS: OLANZapine 10 MG TABLET PO SCH ×2 (09:00→17:00)
[2022-03-24] MEDS: METOPROLOL SUCCINATE 25 MG ER TABLET PO SCH (09:00)
[2022-03-24] MEDS: DIVALPROEX SODIUM 500 MG ER TABLET PO SCH ×2 (09:00→17:00)
[2022-03-24] MEDS: DiphenhydrAMINE HCL 25 MG CAPSULE PO SCH ×2 (09:00→17:00)
[2022-03-24] MEDS: AmLODIPine BESYLATE 10 MG TABLET PO SCH (09:00)
[2022-03-24] MEDS: CETIRIZINE HCL 10 MG TABLET PO SCH (09:00)
[2022-03-24] MEDS: BECLOMETHASONE DIPR HFA 40 MCG/PUFF 10.6 GM INHALER IH SCH ×2 (09:00→17:00)
[2022-03-24] MEDS: FLUoxetine HCL 20 MG CAPSULE PO SCH (09:00)
[2022-03-24] MEDS: FUROSEMIDE 40 MG TABLET PO SCH ×2 (09:00→17:00)
[2022-03-24 20:10] VITALS: BP 136/82
[2022-03-24] MEDS: ATORVASTATIN CALCIUM 40 MG TABLET PO SCH (20:39)
[2022-03-25] MEDS: MetFORMIN HCL 500 MG TABLET PO SCH ×3 (06:53→17:16)
[2022-03-25] MEDS ORDERED: LORazepam 2 MG/ML VIAL IM ONE (08:30)
[2022-03-25] MEDS ORDERED: DiphenhydrAMINE HCL 50 MG/ML VIAL IM ONE (08:30)
[2022-03-25] MEDS ORDERED: ChlorproMAZINE HCL 50 MG/2 ML AMP IM ONE (08:30)
[2022-03-25] MEDS: DIVALPROEX SODIUM 500 MG ER TABLET PO SCH ×2 (09:00→17:16)
[2022-03-25] MEDS: DiphenhydrAMINE HCL 25 MG CAPSULE PO SCH ×2 (09:00→17:16)
[2022-03-25] MEDS: FLUoxetine HCL 20 MG CAPSULE PO SCH (09:00)
[2022-03-25] MEDS: OLANZapine 10 MG TABLET PO SCH ×2 (09:00→17:16)
[2022-03-25] MEDS: AmLODIPine BESYLATE 10 MG TABLET PO SCH (09:00)
[2022-03-25] MEDS: METOPROLOL SUCCINATE 25 MG ER TABLET PO SCH (09:00)
[2022-03-25] MEDS: CETIRIZINE HCL 10 MG TABLET PO SCH (09:00)
[2022-03-25] MEDS: BECLOMETHASONE DIPR HFA 40 MCG/PUFF 10.6 GM INHALER IH SCH ×2 (09:00→17:17)
[2022-03-25] MEDS: FUROSEMIDE 40 MG TABLET PO SCH ×2 (09:00→17:16)
[2022-03-25] MEDS: ACETAMINOPHEN 325 MG TABLET PO PRN (19:03)
[2022-03-25] MEDS: ATORVASTATIN CALCIUM 40 MG TABLET PO SCH (20:12)
[2022-03-25 20:35] VITALS: BP 129/79
[2022-03-25] MEDS: IBUPROFEN 400 MG TABLET PO PRN (21:13)
[2022-03-26] MEDS: MetFORMIN HCL 500 MG TABLET PO SCH ×2 (06:40→16:41)
[2022-03-26] MEDS: BECLOMETHASONE DIPR HFA 40 MCG/PUFF 10.6 GM INHALER IH SCH ×2 (08:18→16:42)
[2022-03-26] MEDS: METOPROLOL SUCCINATE 25 MG ER TABLET PO SCH (08:19)
[2022-03-26] MEDS: FUROSEMIDE 40 MG TABLET PO SCH ×2 (08:19→16:40)
[2022-03-26] MEDS: CETIRIZINE HCL 10 MG TABLET PO SCH (08:19)
[2022-03-26] MEDS: AmLODIPine BESYLATE 10 MG TABLET PO SCH (08:19)
[2022-03-26] MEDS: DIVALPROEX SODIUM 500 MG ER TABLET PO SCH ×2 (08:19→16:40)
[2022-03-26] MEDS: DiphenhydrAMINE HCL 25 MG CAPSULE PO SCH ×2 (08:20→16:40)
[2022-03-26] MEDS: OLANZapine 10 MG TABLET PO SCH ×2 (08:20→16:41)
[2022-03-26] MEDS: FLUoxetine HCL 20 MG CAPSULE PO SCH (08:20)
[2022-03-26 15:06] LABS: GLUCOMETER DEV NAME(LOC) POC.BV
[2022-03-26] MEDS: ATORVASTATIN CALCIUM 40 MG TABLET PO SCH (20:23)
[2022-03-26 21:48] VITALS: BP 131/74
[2022-03-27] MEDS: MetFORMIN HCL 500 MG TABLET PO SCH ×2 (06:36→17:00)
[2022-03-27] MEDS: DIVALPROEX SODIUM 500 MG ER TABLET PO SCH ×2 (08:27→17:00)
[2022-03-27] MEDS: DiphenhydrAMINE HCL 25 MG CAPSULE PO SCH ×2 (08:27→17:00)
[2022-03-27] MEDS: OLANZapine 10 MG TABLET PO SCH ×2 (08:27→17:00)
[2022-03-27] MEDS: CETIRIZINE HCL 10 MG TABLET PO SCH (08:28)
[2022-03-27] MEDS: FUROSEMIDE 40 MG TABLET PO SCH ×2 (08:28→17:00)
[2022-03-27] MEDS: FLUoxetine HCL 20 MG CAPSULE PO SCH (08:28)
[2022-03-27] MEDS: METOPROLOL SUCCINATE 25 MG ER TABLET PO SCH (08:28)
[2022-03-27] MEDS: AmLODIPine BESYLATE 10 MG TABLET PO SCH (08:28)
[2022-03-27] MEDS: BECLOMETHASONE DIPR HFA 40 MCG/PUFF 10.6 GM INHALER IH SCH ×2 (08:28→17:00)
[2022-03-27] MEDS: ATORVASTATIN CALCIUM 40 MG TABLET PO SCH (20:55)
[2022-03-27 23:51] VITALS: BP 128/70
[2022-03-28] MEDS: MetFORMIN HCL 500 MG TABLET PO SCH ×2 (07:00→17:00)
[2022-03-28] MEDS: CETIRIZINE HCL 10 MG TABLET PO SCH (08:09)
[2022-03-28] MEDS: DIVALPROEX SODIUM 500 MG ER TABLET PO SCH ×2 (08:09→17:00)
[2022-03-28] MEDS: METOPROLOL SUCCINATE 25 MG ER TABLET PO SCH (08:10)
[2022-03-28] MEDS: FLUoxetine HCL 20 MG CAPSULE PO SCH (08:10)
[2022-03-28] MEDS: AmLODIPine BESYLATE 10 MG TABLET PO SCH (08:10)
[2022-03-28] MEDS: DiphenhydrAMINE HCL 25 MG CAPSULE PO SCH ×2 (08:10→17:00)
[2022-03-28] MEDS: FUROSEMIDE 40 MG TABLET PO SCH ×2 (08:10→17:00)
[2022-03-28] MEDS: OLANZapine 10 MG TABLET PO SCH ×2 (08:10→17:00)
[2022-03-28] MEDS: BECLOMETHASONE DIPR HFA 40 MCG/PUFF 10.6 GM INHALER IH SCH ×2 (08:15→17:00)
[2022-03-28 20:32] VITALS: BP 116/63
[2022-03-28] MEDS: ATORVASTATIN CALCIUM 40 MG TABLET PO SCH (21:00)
[2022-03-29] MEDS: MetFORMIN HCL 500 MG TABLET PO SCH ×2 (06:42→17:00)
[2022-03-29] MEDS: BECLOMETHASONE DIPR HFA 40 MCG/PUFF 10.6 GM INHALER IH SCH ×2 (08:31→17:00)
[2022-03-29] MEDS: CETIRIZINE HCL 10 MG TABLET PO SCH (08:32)
[2022-03-29] MEDS: FUROSEMIDE 40 MG TABLET PO SCH ×2 (08:32→17:00)
[2022-03-29] MEDS: METOPROLOL SUCCINATE 25 MG ER TABLET PO SCH (08:32)
[2022-03-29] MEDS: FLUoxetine HCL 20 MG CAPSULE PO SCH (08:32)
[2022-03-29] MEDS: AmLODIPine BESYLATE 10 MG TABLET PO SCH (08:32)
[2022-03-29] MEDS: DIVALPROEX SODIUM 500 MG ER TABLET PO SCH ×2 (08:32→17:00)
[2022-03-29] MEDS: OLANZapine 10 MG TABLET PO SCH ×2 (08:32→17:00)
[2022-03-29] MEDS: DiphenhydrAMINE HCL 25 MG CAPSULE PO SCH ×2 (08:32→17:00)
[2022-03-29] MEDS ORDERED: DIVA-80 PO (10:33)
[2022-03-29] MEDS ORDERED: DIPH25CA85 PO (10:33)
[2022-03-29] MEDS ORDERED: OLAN10TA74 PO (12:02)
[2022-03-29] MEDS: ATORVASTATIN CALCIUM 40 MG TABLET PO SCH (21:00)
[2022-03-29 21:09] VITALS: BP 118/76
[2022-03-30 08:38] VITALS: BP 141/78
[2022-03-30] MEDS: FLUoxetine HCL 20 MG CAPSULE PO SCH (09:00)
[2022-03-30] MEDS: METOPROLOL SUCCINATE 25 MG ER TABLET PO SCH (09:00)
[2022-03-30] MEDS: CETIRIZINE HCL 10 MG TABLET PO SCH (09:00)
[2022-03-30] MEDS: OLANZapine 10 MG TABLET PO SCH ×2 (09:00→17:00)
[2022-03-30] MEDS: DIVALPROEX SODIUM 500 MG ER TABLET PO SCH ×2 (09:00→17:00)
[2022-03-30] MEDS: FUROSEMIDE 40 MG TABLET PO SCH ×2 (09:00→17:00)
[2022-03-30] MEDS: AmLODIPine BESYLATE 10 MG TABLET PO SCH (09:00)
[2022-03-30] MEDS: BECLOMETHASONE DIPR HFA 40 MCG/PUFF 10.6 GM INHALER IH SCH ×2 (09:00→17:00)
[2022-03-30] MEDS: DiphenhydrAMINE HCL 25 MG CAPSULE PO SCH ×2 (09:00→17:00)
[2022-03-30] MEDS: MetFORMIN HCL 500 MG TABLET PO SCH ×2 (17:00→17:09)
[2022-03-30 20:12] VITALS: BP 138/42
[2022-03-30] MEDS: ATORVASTATIN CALCIUM 40 MG TABLET PO SCH (20:27)
[2022-03-30] MEDS: IBUPROFEN 400 MG TABLET PO PRN (22:19)
[2022-03-31] MEDS: MetFORMIN HCL 500 MG TABLET PO SCH ×2 (06:36→16:08)
[2022-03-31] MEDS: FUROSEMIDE 40 MG TABLET PO SCH ×2 (09:00→16:08)
[2022-03-31] MEDS: BECLOMETHASONE DIPR HFA 40 MCG/PUFF 10.6 GM INHALER IH SCH ×2 (09:00→16:08)
[2022-03-31] MEDS: CETIRIZINE HCL 10 MG TABLET PO SCH (09:00)
[2022-03-31] MEDS: DIVALPROEX SODIUM 500 MG ER TABLET PO SCH ×2 (13:00→16:08)
[2022-03-31] MEDS: FLUoxetine HCL 20 MG CAPSULE PO SCH (13:00)
[2022-03-31] MEDS: METOPROLOL SUCCINATE 25 MG ER TABLET PO SCH (13:00)
[2022-03-31] MEDS: AmLODIPine BESYLATE 10 MG TABLET PO SCH (13:00)
[2022-03-31] MEDS: OLANZapine 10 MG TABLET PO SCH ×2 (13:01→16:08)
[2022-03-31] MEDS: DiphenhydrAMINE HCL 25 MG CAPSULE PO SCH ×2 (13:01→16:08)
[2022-03-31] MEDS: IBUPROFEN 400 MG TABLET PO PRN (14:17)
[2022-03-31 14:54] VITALS: BP 136/73
[2022-03-31 20:13] VITALS: BP 128/64
[2022-03-31] MEDS: ATORVASTATIN CALCIUM 40 MG TABLET PO SCH (20:22)
[2022-04-01] MEDS: MetFORMIN HCL 500 MG TABLET PO SCH ×2 (06:35→16:23)
[2022-04-01 09:33] VITALS: BP 114/67
[2022-04-01] MEDS: FLUoxetine HCL 20 MG CAPSULE PO SCH (09:35)
[2022-04-01] MEDS: DiphenhydrAMINE HCL 25 MG CAPSULE PO SCH ×2 (09:35→16:23)
[2022-04-01] MEDS: METOPROLOL SUCCINATE 25 MG ER TABLET PO SCH (09:35)
[2022-04-01] MEDS: OLANZapine 10 MG TABLET PO SCH ×2 (09:35→16:23)
[2022-04-01] MEDS: DIVALPROEX SODIUM 500 MG ER TABLET PO SCH ×2 (09:35→16:24)
[2022-04-01] MEDS: AmLODIPine BESYLATE 10 MG TABLET PO SCH (09:35)
[2022-04-01] MEDS: CETIRIZINE HCL 10 MG TABLET PO SCH (09:36)
[2022-04-01] MEDS: FUROSEMIDE 40 MG TABLET PO SCH ×2 (09:36→16:23)
[2022-04-01] MEDS: BECLOMETHASONE DIPR HFA 40 MCG/PUFF 10.6 GM INHALER IH SCH ×2 (09:41→16:24)
[2022-04-01] MEDS: IBUPROFEN 400 MG TABLET PO PRN ×2 (09:45→17:46)
[2022-04-01] MEDS: BENZONATATE 100 MG CAPSULE PO PRN (16:24)
[2022-04-01] MEDS: ATORVASTATIN CALCIUM 40 MG TABLET PO SCH (20:13)
[2022-04-01 20:16] VITALS: BP 134/78
[2022-04-02] MEDS: MetFORMIN HCL 500 MG TABLET PO SCH ×2 (06:57→16:45)
[2022-04-02] MEDS: FUROSEMIDE 40 MG TABLET PO SCH ×2 (08:26→16:45)
[2022-04-02] MEDS: DiphenhydrAMINE HCL 25 MG CAPSULE PO SCH ×2 (08:26→16:45)
[2022-04-02] MEDS: BECLOMETHASONE DIPR HFA 40 MCG/PUFF 10.6 GM INHALER IH SCH ×2 (08:26→16:44)
[2022-04-02] MEDS: METOPROLOL SUCCINATE 25 MG ER TABLET PO SCH (08:27)
[2022-04-02] MEDS: FLUoxetine HCL 20 MG CAPSULE PO SCH (08:27)
[2022-04-02] MEDS: CETIRIZINE HCL 10 MG TABLET PO SCH (08:27)
[2022-04-02] MEDS: OLANZapine 10 MG TABLET PO SCH ×2 (08:27→16:45)
[2022-04-02] MEDS: AmLODIPine BESYLATE 10 MG TABLET PO SCH (08:27)
[2022-04-02] MEDS: DIVALPROEX SODIUM 500 MG ER TABLET PO SCH ×2 (08:28→16:45)
[2022-04-02 10:46] LABS: GLUCOMETER DEV NAME(LOC) POC.BV
[2022-04-02 14:31] VITALS: BP 128/80
[2022-04-02] MEDS: BENZONATATE 100 MG CAPSULE PO PRN (16:45)
[2022-04-02] MEDS: IBUPROFEN 400 MG TABLET PO PRN (16:46)
[2022-04-02] MEDS: ATORVASTATIN CALCIUM 40 MG TABLET PO SCH (20:05)
[2022-04-02 20:09] VITALS: BP 122/76
[2022-04-03 07:01] LABS: GLUCOMETER DEV NAME(LOC) BV2X.2; GLUCOSE,POINT OF CARE 98 MG/DL (70-110)
[2022-04-03] MEDS: MetFORMIN HCL 500 MG TABLET PO SCH ×2 (07:09→17:14)
[2022-04-03] MEDS: DIVALPROEX SODIUM 500 MG ER TABLET PO SCH ×2 (09:11→17:13)
[2022-04-03] MEDS: DiphenhydrAMINE HCL 25 MG CAPSULE PO SCH ×2 (09:11→17:12)
[2022-04-03] MEDS: FLUoxetine HCL 20 MG CAPSULE PO SCH (09:11)
[2022-04-03] MEDS: OLANZapine 10 MG TABLET PO SCH ×2 (09:12→17:12)
[2022-04-03] MEDS: FUROSEMIDE 40 MG TABLET PO SCH ×2 (09:12→17:13)
[2022-04-03] MEDS: CETIRIZINE HCL 10 MG TABLET PO SCH (09:12)
[2022-04-03] MEDS: AmLODIPine BESYLATE 10 MG TABLET PO SCH (09:12)
[2022-04-03] MEDS: METOPROLOL SUCCINATE 25 MG ER TABLET PO SCH (09:12)
[2022-04-03] MEDS: BECLOMETHASONE DIPR HFA 40 MCG/PUFF 10.6 GM INHALER IH SCH ×2 (09:13→17:11)
[2022-04-03 09:48] VITALS: BP 114/60
[2022-04-03] MEDS: ATORVASTATIN CALCIUM 40 MG TABLET PO SCH (20:02)
[2022-04-03 22:04] VITALS: BP 103/68
[2022-04-04] MEDS: MetFORMIN HCL 500 MG TABLET PO SCH ×2 (06:13→16:48)
[2022-04-04] MEDS: CETIRIZINE HCL 10 MG TABLET PO SCH (08:44)
[2022-04-04] MEDS: FUROSEMIDE 40 MG TABLET PO SCH ×2 (08:45→16:48)
[2022-04-04] MEDS: OLANZapine 10 MG TABLET PO SCH ×2 (08:45→16:48)
[2022-04-04] MEDS: HALOPERIDOL 5 MG TABLET PO PRN (08:45)
[2022-04-04] MEDS: METOPROLOL SUCCINATE 25 MG ER TABLET PO SCH (08:45)
[2022-04-04] MEDS: DiphenhydrAMINE HCL 25 MG CAPSULE PO SCH ×2 (08:45→16:48)
[2022-04-04] MEDS: FLUoxetine HCL 20 MG CAPSULE PO SCH (08:45)
[2022-04-04] MEDS: DIVALPROEX SODIUM 500 MG ER TABLET PO SCH ×2 (08:45→17:00)
[2022-04-04] MEDS: AmLODIPine BESYLATE 10 MG TABLET PO SCH (08:45)
[2022-04-04] MEDS: BECLOMETHASONE DIPR HFA 40 MCG/PUFF 10.6 GM INHALER IH SCH ×2 (08:46→16:49)
[2022-04-04 09:46] VITALS: BP 116/54
[2022-04-04] MEDS: ATORVASTATIN CALCIUM 40 MG TABLET PO SCH (20:12)
[2022-04-05] MEDS: MetFORMIN HCL 500 MG TABLET PO SCH ×2 (06:36→16:43)
[2022-04-05] MEDS: CETIRIZINE HCL 10 MG TABLET PO SCH (08:28)
[2022-04-05] MEDS: FUROSEMIDE 40 MG TABLET PO SCH ×2 (08:28→16:43)
[2022-04-05] MEDS: DiphenhydrAMINE HCL 25 MG CAPSULE PO SCH ×2 (08:28→16:43)
[2022-04-05] MEDS: DIVALPROEX SODIUM 500 MG ER TABLET PO SCH ×2 (08:28→16:45)
[2022-04-05] MEDS: AmLODIPine BESYLATE 10 MG TABLET PO SCH (08:29)
[2022-04-05] MEDS: FLUoxetine HCL 20 MG CAPSULE PO SCH (08:29)
[2022-04-05] MEDS: OLANZapine 10 MG TABLET PO SCH ×2 (08:29→16:43)
[2022-04-05] MEDS: METOPROLOL SUCCINATE 25 MG ER TABLET PO SCH (08:29)
[2022-04-05] MEDS: HALOPERIDOL 5 MG TABLET PO PRN (08:29)
[2022-04-05] MEDS: BECLOMETHASONE DIPR HFA 40 MCG/PUFF 10.6 GM INHALER IH SCH ×2 (08:30→16:45)
[2022-04-05] MEDS: LORazepam 1 MG TABLET PO PRN (16:43)
[2022-04-05] MEDS: BENZONATATE 100 MG CAPSULE PO PRN (16:43)
[2022-04-05] MEDS: IBUPROFEN 400 MG TABLET PO PRN (16:43)
[2022-04-05] MEDS: ATORVASTATIN CALCIUM 40 MG TABLET PO SCH (20:27)
[2022-04-05] MEDS: ZOLPIDEM TARTRATE 10 MG TABLET PO PRN (20:27)
[2022-04-05 20:42] VITALS: BP 123/75
[2022-04-06 06:01] LABS: GLUCOMETER DEV NAME(LOC) BV3N.; GLUCOSE,POINT OF CARE 103 MG/DL (70-110)
[2022-04-06] MEDS: MetFORMIN HCL 500 MG TABLET PO SCH ×2 (06:54→16:57)
[2022-04-06] MEDS: AmLODIPine BESYLATE 10 MG TABLET PO SCH ×2 (08:40→09:00)
[2022-04-06] MEDS: METOPROLOL SUCCINATE 25 MG ER TABLET PO SCH ×2 (08:40→09:00)
[2022-04-06] MEDS: DiphenhydrAMINE HCL 25 MG CAPSULE PO SCH ×3 (08:40→16:57)
[2022-04-06] MEDS: BECLOMETHASONE DIPR HFA 40 MCG/PUFF 10.6 GM INHALER IH SCH ×2 (08:40→16:57)
[2022-04-06] MEDS: OLANZapine 10 MG TABLET PO SCH ×3 (08:40→16:57)
[2022-04-06] MEDS: DIVALPROEX SODIUM 500 MG ER TABLET PO SCH ×3 (08:41→16:58)
[2022-04-06] MEDS: FUROSEMIDE 40 MG TABLET PO SCH ×3 (08:41→16:58)
[2022-04-06] MEDS: FLUoxetine HCL 20 MG CAPSULE PO SCH ×2 (08:41→09:00)
[2022-04-06] MEDS: CETIRIZINE HCL 10 MG TABLET PO SCH (09:00)
[2022-04-06] MEDS: LORazepam 1 MG TABLET PO PRN ×2 (16:58→21:05)
[2022-04-06] MEDS: ATORVASTATIN CALCIUM 40 MG TABLET PO SCH (20:30)
[2022-04-06] MEDS: HALOPERIDOL 5 MG TABLET PO PRN (20:31)
[2022-04-06 21:05] VITALS: BP 128/70
[2022-04-07] MEDS: MetFORMIN HCL 500 MG TABLET PO SCH ×2 (06:54→16:04)
[2022-04-07 08:06] VITALS: BP 122/84
[2022-04-07] MEDS: FUROSEMIDE 40 MG TABLET PO SCH ×2 (08:16→16:20)
[2022-04-07] MEDS: CETIRIZINE HCL 10 MG TABLET PO SCH (08:16)
[2022-04-07] MEDS: AmLODIPine BESYLATE 10 MG TABLET PO SCH (08:16)
[2022-04-07] MEDS: BECLOMETHASONE DIPR HFA 40 MCG/PUFF 10.6 GM INHALER IH SCH ×2 (08:16→16:16)
[2022-04-07] MEDS: OLANZapine 10 MG TABLET PO SCH ×2 (08:16→16:04)
[2022-04-07] MEDS: METOPROLOL SUCCINATE 25 MG ER TABLET PO SCH (08:16)
[2022-04-07] MEDS: FLUoxetine HCL 20 MG CAPSULE PO SCH (08:16)
[2022-04-07] MEDS: DiphenhydrAMINE HCL 25 MG CAPSULE PO SCH ×2 (08:16→16:03)
[2022-04-07] MEDS: DIVALPROEX SODIUM 250 MG ER TABLET PO SCH ×2 (08:43→16:03)
[2022-04-07] MEDS ORDERED: VALPROIC ACID 250 MG/5 ML SOLUTION UDCUP PO SCH (09:00)
[2022-04-07 09:16] LABS: GLUCOMETER DEV NAME(LOC) BV3N.; GLUCOSE,POINT OF CARE 145 MG/DL (70-110)
[2022-04-07] MEDS: ATORVASTATIN CALCIUM 40 MG TABLET PO SCH (20:22)
[2022-04-07 20:52] VITALS: BP 114/69
[2022-04-08] MEDS: MetFORMIN HCL 500 MG TABLET PO SCH ×2 (06:36→17:07)
[2022-04-08 08:10] VITALS: BP 125/72
[2022-04-08] MEDS: FUROSEMIDE 40 MG TABLET PO SCH ×2 (08:13→17:07)
[2022-04-08] MEDS: CETIRIZINE HCL 10 MG TABLET PO SCH (08:13)
[2022-04-08] MEDS: FLUoxetine HCL 20 MG CAPSULE PO SCH (08:13)
[2022-04-08] MEDS: DiphenhydrAMINE HCL 25 MG CAPSULE PO SCH ×2 (08:13→17:07)
[2022-04-08] MEDS: OLANZapine 10 MG TABLET PO SCH ×2 (08:13→17:07)
[2022-04-08] MEDS: AmLODIPine BESYLATE 10 MG TABLET PO SCH (08:13)
[2022-04-08] MEDS: METOPROLOL SUCCINATE 25 MG ER TABLET PO SCH (08:13)
[2022-04-08] MEDS: DIVALPROEX SODIUM 250 MG ER TABLET PO SCH ×2 (08:14→17:07)
[2022-04-08] MEDS: BECLOMETHASONE DIPR HFA 40 MCG/PUFF 10.6 GM INHALER IH SCH ×2 (08:15→17:18)
[2022-04-08] MEDS: LORazepam 1 MG TABLET PO PRN ×2 (17:07→21:08)
[2022-04-08 20:00] VITALS: BP 120/68
[2022-04-08] MEDS: ATORVASTATIN CALCIUM 40 MG TABLET PO SCH (20:21)
[2022-04-09 06:11] LABS: GLUCOMETER DEV NAME(LOC) BV3N.; GLUCOSE,POINT OF CARE 148 MG/DL (70-110)
[2022-04-09] MEDS: MetFORMIN HCL 500 MG TABLET PO SCH ×2 (06:43→17:16)
[2022-04-09] MEDS: METOPROLOL SUCCINATE 25 MG ER TABLET PO SCH (08:11)
[2022-04-09] MEDS: OLANZapine 10 MG TABLET PO SCH ×2 (08:11→17:16)
[2022-04-09] MEDS: DiphenhydrAMINE HCL 25 MG CAPSULE PO SCH ×2 (08:11→17:16)
[2022-04-09] MEDS: FLUoxetine HCL 20 MG CAPSULE PO SCH (08:11)
[2022-04-09] MEDS: AmLODIPine BESYLATE 10 MG TABLET PO SCH (08:11)
[2022-04-09] MEDS: DIVALPROEX SODIUM 250 MG ER TABLET PO SCH ×2 (08:12→17:16)
[2022-04-09] MEDS: CETIRIZINE HCL 10 MG TABLET PO SCH (08:12)
[2022-04-09] MEDS: FUROSEMIDE 40 MG TABLET PO SCH ×2 (08:12→17:16)
[2022-04-09] MEDS: BECLOMETHASONE DIPR HFA 40 MCG/PUFF 10.6 GM INHALER IH SCH ×2 (08:14→17:17)
[2022-04-09 08:37] VITALS: BP 116/71
[2022-04-09 10:46] LABS: GLUCOMETER DEV NAME(LOC) POC.BV
[2022-04-09] MEDS: IBUPROFEN 400 MG TABLET PO PRN (13:19)
[2022-04-09 20:12] VITALS: BP 120/68
[2022-04-09] MEDS: ATORVASTATIN CALCIUM 40 MG TABLET PO SCH (20:40)
[2022-04-10] MEDS: MetFORMIN HCL 500 MG TABLET PO SCH ×2 (06:17→17:00)
[2022-04-10] MEDS: CETIRIZINE HCL 10 MG TABLET PO SCH (08:20)
[2022-04-10] MEDS: DiphenhydrAMINE HCL 25 MG CAPSULE PO SCH ×2 (08:21→17:00)
[2022-04-10] MEDS: METOPROLOL SUCCINATE 25 MG ER TABLET PO SCH (08:21)
[2022-04-10] MEDS: OLANZapine 10 MG TABLET PO SCH ×2 (08:21→17:00)
[2022-04-10] MEDS: FLUoxetine HCL 20 MG CAPSULE PO SCH (08:21)
[2022-04-10] MEDS: AmLODIPine BESYLATE 10 MG TABLET PO SCH (08:21)
[2022-04-10] MEDS: DIVALPROEX SODIUM 250 MG ER TABLET PO SCH ×2 (08:22→17:00)
[2022-04-10] MEDS: FUROSEMIDE 40 MG TABLET PO SCH ×2 (08:23→17:00)
[2022-04-10] MEDS: BECLOMETHASONE DIPR HFA 40 MCG/PUFF 10.6 GM INHALER IH SCH ×2 (08:23→17:01)
[2022-04-10 08:49] VITALS: BP 109/69
[2022-04-10] MEDS: IBUPROFEN 400 MG TABLET PO PRN (14:20)
[2022-04-10] MEDS: ATORVASTATIN CALCIUM 40 MG TABLET PO SCH (20:30)
[2022-04-10 22:14] VITALS: BP 104/60
[2022-04-11] MEDS: MetFORMIN HCL 500 MG TABLET PO SCH ×2 (06:05→16:38)
[2022-04-11] MEDS: BECLOMETHASONE DIPR HFA 40 MCG/PUFF 10.6 GM INHALER IH SCH ×2 (08:06→16:38)
[2022-04-11] MEDS: AmLODIPine BESYLATE 10 MG TABLET PO SCH (08:07)
[2022-04-11] MEDS: CETIRIZINE HCL 10 MG TABLET PO SCH (08:07)
[2022-04-11] MEDS: FUROSEMIDE 40 MG TABLET PO SCH ×2 (08:07→16:39)
[2022-04-11] MEDS: DIVALPROEX SODIUM 250 MG ER TABLET PO SCH ×2 (08:07→16:41)
[2022-04-11] MEDS: METOPROLOL SUCCINATE 25 MG ER TABLET PO SCH (08:07)
[2022-04-11] MEDS: FLUoxetine HCL 20 MG CAPSULE PO SCH (08:07)
[2022-04-11] MEDS: OLANZapine 10 MG TABLET PO SCH ×2 (08:07→16:38)
[2022-04-11] MEDS: DiphenhydrAMINE HCL 25 MG CAPSULE PO SCH ×2 (08:07→16:38)
[2022-04-11] MEDS: ATORVASTATIN CALCIUM 40 MG TABLET PO SCH (20:21)
[2022-04-11 21:22] VITALS: BP 104/60
[2022-04-12] MEDS: MetFORMIN HCL 500 MG TABLET PO SCH ×2 (06:34→16:30)
[2022-04-12] MEDS: DiphenhydrAMINE HCL 25 MG CAPSULE PO SCH ×2 (08:14→16:30)
[2022-04-12] MEDS: DIVALPROEX SODIUM 250 MG ER TABLET PO SCH ×2 (08:14→16:30)
[2022-04-12] MEDS: FLUoxetine HCL 20 MG CAPSULE PO SCH (08:14)
[2022-04-12] MEDS: AmLODIPine BESYLATE 10 MG TABLET PO SCH (08:14)
[2022-04-12] MEDS: OLANZapine 10 MG TABLET PO SCH ×2 (08:14→16:30)
[2022-04-12] MEDS: METOPROLOL SUCCINATE 25 MG ER TABLET PO SCH (08:14)
[2022-04-12] MEDS: CETIRIZINE HCL 10 MG TABLET PO SCH (08:14)
[2022-04-12] MEDS: FUROSEMIDE 40 MG TABLET PO SCH ×2 (08:14→16:30)
[2022-04-12] MEDS: BECLOMETHASONE DIPR HFA 40 MCG/PUFF 10.6 GM INHALER IH SCH ×2 (08:27→16:30)
[2022-04-12 09:10] VITALS: BP 124/72
[2022-04-12 20:23] VITALS: BP 118/69
[2022-04-12] MEDS: ATORVASTATIN CALCIUM 40 MG TABLET PO SCH (20:23)
[2022-04-12] MEDS: IBUPROFEN 400 MG TABLET PO PRN (20:23)
[2022-04-13] MEDS: MetFORMIN HCL 500 MG TABLET PO SCH ×2 (06:28→17:09)
[2022-04-13 08:15] VITALS: BP 120/69
[2022-04-13] MEDS: DIVALPROEX SODIUM 250 MG ER TABLET PO SCH ×2 (09:48→17:09)
[2022-04-13] MEDS: METOPROLOL SUCCINATE 25 MG ER TABLET PO SCH (09:48)
[2022-04-13] MEDS: AmLODIPine BESYLATE 10 MG TABLET PO SCH (09:48)
[2022-04-13] MEDS: FLUoxetine HCL 20 MG CAPSULE PO SCH (09:48)
[2022-04-13] MEDS: CETIRIZINE HCL 10 MG TABLET PO SCH (09:49)
[2022-04-13] MEDS: OLANZapine 10 MG TABLET PO SCH ×2 (09:49→17:09)
[2022-04-13] MEDS: DiphenhydrAMINE HCL 25 MG CAPSULE PO SCH ×2 (09:49→17:09)
[2022-04-13] MEDS: FUROSEMIDE 40 MG TABLET PO SCH ×2 (09:49→17:09)
[2022-04-13] MEDS: BECLOMETHASONE DIPR HFA 40 MCG/PUFF 10.6 GM INHALER IH SCH ×2 (09:50→17:10)
[2022-04-13 17:01] LABS: GLUCOMETER DEV NAME(LOC) BV3N.; GLUCOSE,POINT OF CARE 144 MG/DL (70-110)
[2022-04-13 20:11] VITALS: BP 120/69
[2022-04-13 20:13] VITALS: BP 104/63
[2022-04-13] MEDS: ATORVASTATIN CALCIUM 40 MG TABLET PO SCH (20:18)
[2022-04-13] MEDS: IBUPROFEN 400 MG TABLET PO PRN (20:18)
[2022-04-13] MEDS: ZOLPIDEM TARTRATE 10 MG TABLET PO PRN (22:10)
[2022-04-14] MEDS: MetFORMIN HCL 500 MG TABLET PO SCH ×2 (06:12→17:12)
[2022-04-14] MEDS: OLANZapine 10 MG TABLET PO SCH ×2 (08:29→17:12)
[2022-04-14] MEDS: METOPROLOL SUCCINATE 25 MG ER TABLET PO SCH (08:29)
[2022-04-14] MEDS: FLUoxetine HCL 20 MG CAPSULE PO SCH (08:29)
[2022-04-14] MEDS: AmLODIPine BESYLATE 10 MG TABLET PO SCH (08:29)
[2022-04-14] MEDS: FUROSEMIDE 40 MG TABLET PO SCH ×2 (08:29→17:12)
[2022-04-14] MEDS: DiphenhydrAMINE HCL 25 MG CAPSULE PO SCH ×2 (08:30→17:12)
[2022-04-14] MEDS: DIVALPROEX SODIUM 250 MG ER TABLET PO SCH ×2 (08:30→17:12)
[2022-04-14] MEDS: BECLOMETHASONE DIPR HFA 40 MCG/PUFF 10.6 GM INHALER IH SCH ×2 (08:31→17:13)
[2022-04-14] MEDS: CETIRIZINE HCL 10 MG TABLET PO SCH (08:33)
[2022-04-14 09:11] VITALS: BP 115/71
[2022-04-14 17:09] VITALS: BP 118/68
[2022-04-14] MEDS: LORazepam 1 MG TABLET PO PRN (17:12)
[2022-04-14] MEDS: IBUPROFEN 400 MG TABLET PO PRN (17:13)
[2022-04-14 20:22] VITALS: BP 100/65
[2022-04-14] MEDS: ATORVASTATIN CALCIUM 40 MG TABLET PO SCH (20:32)
[2022-04-14] MEDS: ZOLPIDEM TARTRATE 10 MG TABLET PO PRN (20:32)
[2022-04-15 06:12] LABS: GLUCOMETER DEV NAME(LOC) BV3N.; GLUCOSE,POINT OF CARE 110 MG/DL (70-110)
[2022-04-15] MEDS: MetFORMIN HCL 500 MG TABLET PO SCH ×2 (06:46→17:03)
[2022-04-15] MEDS: FLUoxetine HCL 20 MG CAPSULE PO SCH (08:24)
[2022-04-15] MEDS: OLANZapine 10 MG TABLET PO SCH ×2 (08:24→17:03)
[2022-04-15] MEDS: CETIRIZINE HCL 10 MG TABLET PO SCH (08:24)
[2022-04-15] MEDS: FUROSEMIDE 40 MG TABLET PO SCH ×2 (08:24→17:02)
[2022-04-15] MEDS: DiphenhydrAMINE HCL 25 MG CAPSULE PO SCH ×2 (08:24→17:03)
[2022-04-15] MEDS: DIVALPROEX SODIUM 250 MG ER TABLET PO SCH ×2 (08:24→17:02)
[2022-04-15] MEDS: METOPROLOL SUCCINATE 25 MG ER TABLET PO SCH (08:24)
[2022-04-15] MEDS: AmLODIPine BESYLATE 10 MG TABLET PO SCH (08:24)
[2022-04-15] MEDS: BECLOMETHASONE DIPR HFA 40 MCG/PUFF 10.6 GM INHALER IH SCH ×2 (08:27→17:03)
[2022-04-15 09:32] VITALS: BP 113/60
[2022-04-15] MEDS: IBUPROFEN 400 MG TABLET PO PRN (17:03)
[2022-04-15 20:00] VITALS: BP 112/69
[2022-04-15] MEDS: ZOLPIDEM TARTRATE 10 MG TABLET PO PRN (20:43)
[2022-04-15] MEDS: LORazepam 1 MG TABLET PO PRN (20:43)
[2022-04-15] MEDS: ATORVASTATIN CALCIUM 40 MG TABLET PO SCH (20:43)
[2022-04-15] MEDS: HALOPERIDOL 5 MG TABLET PO PRN (20:43)
[2022-04-16 06:25] LABS: GLUCOMETER DEV NAME(LOC) BV3N.; GLUCOSE,POINT OF CARE 118 MG/DL (70-110)
[2022-04-16] MEDS: MetFORMIN HCL 500 MG TABLET PO SCH ×2 (07:12→16:28)
[2022-04-16] MEDS: DiphenhydrAMINE HCL 25 MG CAPSULE PO SCH ×2 (08:15→16:27)
[2022-04-16] MEDS: METOPROLOL SUCCINATE 25 MG ER TABLET PO SCH (08:15)
[2022-04-16] MEDS: FUROSEMIDE 40 MG TABLET PO SCH ×2 (08:15→16:27)
[2022-04-16] MEDS: OLANZapine 10 MG TABLET PO SCH ×2 (08:15→16:26)
[2022-04-16] MEDS: DIVALPROEX SODIUM 250 MG ER TABLET PO SCH ×2 (08:15→16:26)
[2022-04-16] MEDS: AmLODIPine BESYLATE 10 MG TABLET PO SCH (08:15)
[2022-04-16] MEDS: FLUoxetine HCL 20 MG CAPSULE PO SCH (08:15)
[2022-04-16] MEDS: CETIRIZINE HCL 10 MG TABLET PO SCH (08:15)
[2022-04-16] MEDS: BECLOMETHASONE DIPR HFA 40 MCG/PUFF 10.6 GM INHALER IH SCH ×2 (08:17→16:26)
[2022-04-16 08:19] VITALS: BP 110/65
[2022-04-16 09:56] LABS: GLUCOMETER DEV NAME(LOC) POC.BV
[2022-04-16] MEDS: LORazepam 1 MG TABLET PO PRN (16:27)
[2022-04-16 20:25] VITALS: BP 106/62
[2022-04-16] MEDS: ATORVASTATIN CALCIUM 40 MG TABLET PO SCH (20:39)
[2022-04-16] MEDS: ZOLPIDEM TARTRATE 10 MG TABLET PO PRN (20:39)
[2022-04-17] MEDS: MetFORMIN HCL 500 MG TABLET PO SCH ×2 (06:11→16:23)
[2022-04-17] MEDS: FLUoxetine HCL 20 MG CAPSULE PO SCH (08:16)
[2022-04-17] MEDS: AmLODIPine BESYLATE 10 MG TABLET PO SCH (08:16)
[2022-04-17] MEDS: DIVALPROEX SODIUM 250 MG ER TABLET PO SCH ×2 (08:16→16:23)
[2022-04-17] MEDS: DiphenhydrAMINE HCL 25 MG CAPSULE PO SCH ×2 (08:16→16:23)
[2022-04-17] MEDS: OLANZapine 10 MG TABLET PO SCH ×2 (08:16→16:23)
[2022-04-17] MEDS: METOPROLOL SUCCINATE 25 MG ER TABLET PO SCH (08:16)
[2022-04-17] MEDS: CETIRIZINE HCL 10 MG TABLET PO SCH (08:18)
[2022-04-17] MEDS: BECLOMETHASONE DIPR HFA 40 MCG/PUFF 10.6 GM INHALER IH SCH ×2 (08:18→16:24)
[2022-04-17] MEDS: FUROSEMIDE 40 MG TABLET PO SCH ×2 (08:18→16:23)
[2022-04-17 10:05] VITALS: BP 124/68
[2022-04-17] MEDS: LORazepam 1 MG TABLET PO PRN (16:23)
[2022-04-17 16:45] LABS: GLUCOMETER DEV NAME(LOC) BV3N.; GLUCOSE,POINT OF CARE 170 MG/DL (70-110)
[2022-04-17] MEDS: ATORVASTATIN CALCIUM 40 MG TABLET PO SCH (20:19)
[2022-04-18 00:21] VITALS: BP 124/68
[2022-04-18] MEDS: MetFORMIN HCL 500 MG TABLET PO SCH ×2 (06:16→16:48)
[2022-04-18] MEDS: METOPROLOL SUCCINATE 25 MG ER TABLET PO SCH (08:18)
[2022-04-18] MEDS: FLUoxetine HCL 20 MG CAPSULE PO SCH (08:18)
[2022-04-18] MEDS: AmLODIPine BESYLATE 10 MG TABLET PO SCH (08:18)
[2022-04-18] MEDS: OLANZapine 10 MG TABLET PO SCH ×2 (08:18→16:48)
[2022-04-18] MEDS: DIVALPROEX SODIUM 250 MG ER TABLET PO SCH ×2 (08:18→16:48)
[2022-04-18] MEDS: CETIRIZINE HCL 10 MG TABLET PO SCH (08:18)
[2022-04-18] MEDS: BECLOMETHASONE DIPR HFA 40 MCG/PUFF 10.6 GM INHALER IH SCH ×2 (08:18→16:47)
[2022-04-18] MEDS: DiphenhydrAMINE HCL 25 MG CAPSULE PO SCH ×2 (08:18→16:48)
[2022-04-18] MEDS: FUROSEMIDE 40 MG TABLET PO SCH ×2 (08:18→16:48)
[2022-04-18 09:08] VITALS: BP 114/63
[2022-04-18] MEDS: ATORVASTATIN CALCIUM 40 MG TABLET PO SCH (20:47)
[2022-04-19] MEDS: MetFORMIN HCL 500 MG TABLET PO SCH ×2 (06:26→16:30)
[2022-04-19] MEDS: CETIRIZINE HCL 10 MG TABLET PO SCH (08:54)
[2022-04-19] MEDS: FLUoxetine HCL 20 MG CAPSULE PO SCH (08:54)
[2022-04-19] MEDS: FUROSEMIDE 40 MG TABLET PO SCH ×2 (08:54→16:30)
[2022-04-19] MEDS: DiphenhydrAMINE HCL 25 MG CAPSULE PO SCH ×2 (08:54→16:29)
[2022-04-19] MEDS: METOPROLOL SUCCINATE 25 MG ER TABLET PO SCH (08:55)
[2022-04-19] MEDS: AmLODIPine BESYLATE 10 MG TABLET PO SCH (08:55)
[2022-04-19] MEDS: DIVALPROEX SODIUM 250 MG ER TABLET PO SCH ×2 (08:55→16:29)
[2022-04-19] MEDS: OLANZapine 10 MG TABLET PO SCH ×2 (08:58→16:29)
[2022-04-19] MEDS: BECLOMETHASONE DIPR HFA 40 MCG/PUFF 10.6 GM INHALER IH SCH ×2 (09:01→16:29)
[2022-04-19] MEDS: LORazepam 1 MG TABLET PO PRN (16:30)
[2022-04-19] MEDS: ZOLPIDEM TARTRATE 10 MG TABLET PO PRN (20:43)
[2022-04-19] MEDS: ATORVASTATIN CALCIUM 40 MG TABLET PO SCH (20:43)
[2022-04-19] MEDS: IBUPROFEN 400 MG TABLET PO PRN (21:11)
[2022-04-20] MEDS: MetFORMIN HCL 500 MG TABLET PO SCH ×2 (06:18→16:23)
[2022-04-20] MEDS: DIVALPROEX SODIUM 250 MG ER TABLET PO SCH ×2 (08:14→16:22)
[2022-04-20] MEDS: FUROSEMIDE 40 MG TABLET PO SCH ×2 (08:14→16:23)
[2022-04-20] MEDS: BECLOMETHASONE DIPR HFA 40 MCG/PUFF 10.6 GM INHALER IH SCH ×2 (08:14→16:22)
[2022-04-20] MEDS: FLUoxetine HCL 20 MG CAPSULE PO SCH (08:14)
[2022-04-20] MEDS: CETIRIZINE HCL 10 MG TABLET PO SCH (08:14)
[2022-04-20] MEDS: OLANZapine 10 MG TABLET PO SCH ×2 (08:14→16:22)
[2022-04-20] MEDS: AmLODIPine BESYLATE 10 MG TABLET PO SCH (08:14)
[2022-04-20] MEDS: METOPROLOL SUCCINATE 25 MG ER TABLET PO SCH (08:14)
[2022-04-20] MEDS: DiphenhydrAMINE HCL 25 MG CAPSULE PO SCH ×2 (08:14→16:22)
[2022-04-20 08:46] VITALS: BP 100/60
[2022-04-20] MEDS: LORazepam 1 MG TABLET PO PRN (16:23)
[2022-04-20] MEDS: ATORVASTATIN CALCIUM 40 MG TABLET PO SCH (20:23)
[2022-04-20] MEDS: ZOLPIDEM TARTRATE 10 MG TABLET PO PRN (20:23)
[2022-04-20 21:46] VITALS: BP 116/69
[2022-04-21] MEDS: MetFORMIN HCL 500 MG TABLET PO SCH ×2 (06:29→16:07)
[2022-04-21] MEDS: AmLODIPine BESYLATE 10 MG TABLET PO SCH (08:25)
[2022-04-21] MEDS: FUROSEMIDE 40 MG TABLET PO SCH ×2 (08:25→16:07)
[2022-04-21] MEDS: FLUoxetine HCL 20 MG CAPSULE PO SCH (08:25)
[2022-04-21] MEDS: BECLOMETHASONE DIPR HFA 40 MCG/PUFF 10.6 GM INHALER IH SCH ×2 (08:25→16:06)
[2022-04-21] MEDS: CETIRIZINE HCL 10 MG TABLET PO SCH (08:25)
[2022-04-21] MEDS: METOPROLOL SUCCINATE 25 MG ER TABLET PO SCH (08:25)
[2022-04-21] MEDS: OLANZapine 10 MG TABLET PO SCH ×2 (08:26→16:07)
[2022-04-21] MEDS: DiphenhydrAMINE HCL 25 MG CAPSULE PO SCH ×2 (08:26→16:06)
[2022-04-21] MEDS: DIVALPROEX SODIUM 250 MG ER TABLET PO SCH ×2 (08:26→16:06)
[2022-04-21 08:31] VITALS: BP 113/66
[2022-04-21] MEDS: ATORVASTATIN CALCIUM 40 MG TABLET PO SCH (20:08)
[2022-04-21] MEDS: ZOLPIDEM TARTRATE 10 MG TABLET PO PRN (20:08)
[2022-04-21 20:31] VITALS: BP 101/60
[2022-04-22 06:16] LABS: GLUCOMETER DEV NAME(LOC) BV3N.; GLUCOSE,POINT OF CARE 140 MG/DL (70-110)
[2022-04-22] MEDS: MetFORMIN HCL 500 MG TABLET PO SCH ×2 (06:16→17:03)
[2022-04-22] MEDS: METOPROLOL SUCCINATE 25 MG ER TABLET PO SCH (08:17)
[2022-04-22] MEDS: FLUoxetine HCL 20 MG CAPSULE PO SCH (08:17)
[2022-04-22] MEDS: FUROSEMIDE 40 MG TABLET PO SCH ×2 (08:17→17:03)
[2022-04-22] MEDS: DiphenhydrAMINE HCL 25 MG CAPSULE PO SCH ×2 (08:17→17:03)
[2022-04-22] MEDS: CETIRIZINE HCL 10 MG TABLET PO SCH (08:17)
[2022-04-22] MEDS: OLANZapine 10 MG TABLET PO SCH ×2 (08:17→17:03)
[2022-04-22] MEDS: DIVALPROEX SODIUM 250 MG ER TABLET PO SCH ×2 (08:18→17:03)
[2022-04-22] MEDS: BECLOMETHASONE DIPR HFA 40 MCG/PUFF 10.6 GM INHALER IH SCH ×2 (08:20→17:03)
[2022-04-22] MEDS: AmLODIPine BESYLATE 10 MG TABLET PO SCH (08:26)
[2022-04-22 08:45] VITALS: BP 116/60
[2022-04-22 20:00] VITALS: BP 118/72
[2022-04-22] MEDS: ZOLPIDEM TARTRATE 10 MG TABLET PO PRN (20:32)
[2022-04-22] MEDS: ATORVASTATIN CALCIUM 40 MG TABLET PO SCH (20:32)
[2022-04-23 06:12] LABS: GLUCOMETER DEV NAME(LOC) BV3N.; GLUCOSE,POINT OF CARE 108 MG/DL (70-110)
[2022-04-23] MEDS: MetFORMIN HCL 500 MG TABLET PO SCH ×2 (07:08→16:44)
[2022-04-23] MEDS: OLANZapine 10 MG TABLET PO SCH ×2 (08:12→16:44)
[2022-04-23] MEDS: AmLODIPine BESYLATE 10 MG TABLET PO SCH (08:12)
[2022-04-23] MEDS: DiphenhydrAMINE HCL 25 MG CAPSULE PO SCH ×2 (08:12→16:44)
[2022-04-23] MEDS: FUROSEMIDE 40 MG TABLET PO SCH ×2 (08:12→16:44)
[2022-04-23] MEDS: METOPROLOL SUCCINATE 25 MG ER TABLET PO SCH (08:12)
[2022-04-23] MEDS: CETIRIZINE HCL 10 MG TABLET PO SCH (08:12)
[2022-04-23] MEDS: DIVALPROEX SODIUM 250 MG ER TABLET PO SCH ×2 (08:12→16:44)
[2022-04-23] MEDS: FLUoxetine HCL 20 MG CAPSULE PO SCH (08:12)
[2022-04-23] MEDS: BECLOMETHASONE DIPR HFA 40 MCG/PUFF 10.6 GM INHALER IH SCH ×2 (08:14→16:44)
[2022-04-23 09:28] VITALS: BP 110/60
[2022-04-23 09:51] LABS: GLUCOMETER DEV NAME(LOC) POC.BV
[2022-04-23] MEDS ORDERED: TUBERCULIN, PURIFIED PROTEIN DERIVATIVE 5 TU/0.1 ML SYRINGE ID ONE (11:30)
[2022-04-23 16:21] VITALS: BP 102/65
[2022-04-23] MEDS: LORazepam 1 MG TABLET PO PRN (16:44)
[2022-04-23 20:00] VITALS: BP 116/69
[2022-04-23] MEDS: ZOLPIDEM TARTRATE 10 MG TABLET PO PRN (20:26)
[2022-04-23] MEDS: ATORVASTATIN CALCIUM 40 MG TABLET PO SCH (20:26)
[2022-04-24 06:16] LABS: GLUCOMETER DEV NAME(LOC) BV3N.; GLUCOSE,POINT OF CARE 85 MG/DL (70-110)
[2022-04-24] MEDS: MetFORMIN HCL 500 MG TABLET PO SCH ×2 (06:53→16:25)
[2022-04-24] MEDS: DiphenhydrAMINE HCL 25 MG CAPSULE PO SCH ×2 (08:22→16:26)
[2022-04-24] MEDS: DIVALPROEX SODIUM 250 MG ER TABLET PO SCH ×2 (08:22→16:25)
[2022-04-24] MEDS: AmLODIPine BESYLATE 10 MG TABLET PO SCH (08:22)
[2022-04-24] MEDS: FLUoxetine HCL 20 MG CAPSULE PO SCH (08:22)
[2022-04-24] MEDS: OLANZapine 10 MG TABLET PO SCH ×2 (08:23→16:26)
[2022-04-24] MEDS: METOPROLOL SUCCINATE 25 MG ER TABLET PO SCH (08:23)
[2022-04-24] MEDS: CETIRIZINE HCL 10 MG TABLET PO SCH (08:23)
[2022-04-24] MEDS: FUROSEMIDE 40 MG TABLET PO SCH ×2 (08:23→16:26)
[2022-04-24] MEDS: BECLOMETHASONE DIPR HFA 40 MCG/PUFF 10.6 GM INHALER IH SCH ×2 (08:25→16:27)
[2022-04-24 08:34] VITALS: BP 103/55
[2022-04-24] MEDS: LORazepam 1 MG TABLET PO PRN (16:26)
[2022-04-24] MEDS: ATORVASTATIN CALCIUM 40 MG TABLET PO SCH (20:42)
[2022-04-24] MEDS: ZOLPIDEM TARTRATE 10 MG TABLET PO PRN (20:42)
[2022-04-24 21:28] VITALS: BP 115/60
[2022-04-25] MEDS: MetFORMIN HCL 500 MG TABLET PO SCH ×2 (06:02→16:37)
[2022-04-25] MEDS: DiphenhydrAMINE HCL 25 MG CAPSULE PO SCH ×2 (08:30→16:37)
[2022-04-25] MEDS: FLUoxetine HCL 20 MG CAPSULE PO SCH (08:30)
[2022-04-25] MEDS: AmLODIPine BESYLATE 10 MG TABLET PO SCH (08:30)
[2022-04-25] MEDS: CETIRIZINE HCL 10 MG TABLET PO SCH (08:30)
[2022-04-25] MEDS: METOPROLOL SUCCINATE 25 MG ER TABLET PO SCH (08:30)
[2022-04-25] MEDS: OLANZapine 10 MG TABLET PO SCH ×2 (08:30→16:37)
[2022-04-25] MEDS: DIVALPROEX SODIUM 250 MG ER TABLET PO SCH ×2 (08:30→16:36)
[2022-04-25] MEDS: FUROSEMIDE 40 MG TABLET PO SCH ×2 (08:31→16:37)
[2022-04-25] MEDS: BECLOMETHASONE DIPR HFA 40 MCG/PUFF 10.6 GM INHALER IH SCH ×2 (08:31→16:36)
[2022-04-25 09:44] VITALS: BP 122/66
[2022-04-25] MEDS: LORazepam 1 MG TABLET PO PRN (16:37)
[2022-04-25] MEDS: ATORVASTATIN CALCIUM 40 MG TABLET PO SCH (20:20)
[2022-04-25 20:41] VITALS: BP 102/63
[2022-04-26] MEDS: MetFORMIN HCL 500 MG TABLET PO SCH ×2 (06:07→17:14)
[2022-04-26 08:23] VITALS: BP 108/68
[2022-04-26] MEDS: AmLODIPine BESYLATE 10 MG TABLET PO SCH (09:24)
[2022-04-26] MEDS: DIVALPROEX SODIUM 250 MG ER TABLET PO SCH ×2 (09:24→17:15)
[2022-04-26] MEDS: FLUoxetine HCL 20 MG CAPSULE PO SCH (09:24)
[2022-04-26] MEDS: BECLOMETHASONE DIPR HFA 40 MCG/PUFF 10.6 GM INHALER IH SCH ×2 (09:24→17:14)
[2022-04-26] MEDS: CETIRIZINE HCL 10 MG TABLET PO SCH (09:24)
[2022-04-26] MEDS: FUROSEMIDE 40 MG TABLET PO SCH ×2 (09:24→17:20)
[2022-04-26] MEDS: METOPROLOL SUCCINATE 25 MG ER TABLET PO SCH (09:24)
[2022-04-26] MEDS: DiphenhydrAMINE HCL 25 MG CAPSULE PO SCH ×2 (09:24→17:14)
[2022-04-26] MEDS: OLANZapine 10 MG TABLET PO SCH ×2 (09:24→17:14)
[2022-04-26] MEDS: ATORVASTATIN CALCIUM 40 MG TABLET PO SCH (20:26)
[2022-04-26 20:33] VITALS: BP 103/62
[2022-04-26] MEDS ORDERED: ChlorproMAZINE HCL 50 MG/2 ML AMP ONE (22:26)
[2022-04-26] MEDS ORDERED: LORazepam 2 MG/ML VIAL ONE (22:26)
[2022-04-26] MEDS ORDERED: DiphenhydrAMINE HCL 50 MG/ML VIAL ONE (22:26)
[2022-04-26] MEDS ORDERED: DiphenhydrAMINE HCL 50 MG/ML VIAL IM ONE (22:30)
[2022-04-26] MEDS ORDERED: ChlorproMAZINE HCL 50 MG/2 ML AMP IM ONE (22:30)
[2022-04-26] MEDS ORDERED: LORazepam 2 MG/ML VIAL IM ONE (22:30)
[2022-04-27] MEDS: MetFORMIN HCL 500 MG TABLET PO SCH ×2 (06:57→16:29)
[2022-04-27 08:32] VITALS: BP 138/56
[2022-04-27] MEDS: BECLOMETHASONE DIPR HFA 40 MCG/PUFF 10.6 GM INHALER IH SCH ×2 (10:13→16:30)
[2022-04-27] MEDS: OLANZapine 10 MG TABLET PO SCH ×2 (10:14→16:29)
[2022-04-27] MEDS: DiphenhydrAMINE HCL 25 MG CAPSULE PO SCH ×2 (10:14→16:29)
[2022-04-27] MEDS: FLUoxetine HCL 20 MG CAPSULE PO SCH (10:14)
[2022-04-27] MEDS: DIVALPROEX SODIUM 250 MG ER TABLET PO SCH ×2 (10:14→16:29)
[2022-04-27] MEDS: FUROSEMIDE 40 MG TABLET PO SCH ×2 (10:15→16:30)
[2022-04-27] MEDS: AmLODIPine BESYLATE 10 MG TABLET PO SCH (10:15)
[2022-04-27] MEDS: METOPROLOL SUCCINATE 25 MG ER TABLET PO SCH (10:15)
[2022-04-27] MEDS: CETIRIZINE HCL 10 MG TABLET PO SCH (10:16)
[2022-04-27] MEDS: LORazepam 1 MG TABLET PO PRN (16:30)
[2022-04-27] MEDS: ATORVASTATIN CALCIUM 40 MG TABLET PO SCH (20:33)
[2022-04-27] MEDS: ZOLPIDEM TARTRATE 10 MG TABLET PO PRN (20:33)
[2022-04-27 20:47] VITALS: BP 105/62
[2022-04-28] MEDS: MetFORMIN HCL 500 MG TABLET PO SCH ×2 (06:21→16:46)
[2022-04-28 08:34] VITALS: BP 124/70
[2022-04-28] MEDS: BECLOMETHASONE DIPR HFA 40 MCG/PUFF 10.6 GM INHALER IH SCH ×2 (09:00→16:45)
[2022-04-28] MEDS: AmLODIPine BESYLATE 10 MG TABLET PO SCH (09:51)
[2022-04-28] MEDS: METOPROLOL SUCCINATE 25 MG ER TABLET PO SCH (09:51)
[2022-04-28] MEDS: FLUoxetine HCL 20 MG CAPSULE PO SCH (09:51)
[2022-04-28] MEDS: OLANZapine 10 MG TABLET PO SCH ×2 (09:51→16:46)
[2022-04-28] MEDS: DIVALPROEX SODIUM 250 MG ER TABLET PO SCH ×2 (09:51→16:46)
[2022-04-28] MEDS: CETIRIZINE HCL 10 MG TABLET PO SCH (09:51)
[2022-04-28] MEDS: DiphenhydrAMINE HCL 25 MG CAPSULE PO SCH ×2 (09:51→16:45)
[2022-04-28] MEDS: FUROSEMIDE 40 MG TABLET PO SCH ×2 (09:51→16:46)
[2022-04-28 17:06] LABS: GLUCOMETER DEV NAME(LOC) BV3N.; GLUCOSE,POINT OF CARE 166 MG/DL (70-110)
[2022-04-28 20:30] VITALS: BP 104/61
[2022-04-28] MEDS: ATORVASTATIN CALCIUM 40 MG TABLET PO SCH (21:22)
[2022-04-29] MEDS: MetFORMIN HCL 500 MG TABLET PO SCH ×2 (07:01→16:36)
[2022-04-29] MEDS: FUROSEMIDE 40 MG TABLET PO SCH ×2 (08:21→16:36)
[2022-04-29] MEDS: DIVALPROEX SODIUM 250 MG ER TABLET PO SCH ×2 (08:22→16:36)
[2022-04-29] MEDS: AmLODIPine BESYLATE 10 MG TABLET PO SCH (08:22)
[2022-04-29] MEDS: DiphenhydrAMINE HCL 25 MG CAPSULE PO SCH ×2 (08:22→16:36)
[2022-04-29] MEDS: CETIRIZINE HCL 10 MG TABLET PO SCH (08:22)
[2022-04-29] MEDS: FLUoxetine HCL 20 MG CAPSULE PO SCH (08:23)
[2022-04-29] MEDS: METOPROLOL SUCCINATE 25 MG ER TABLET PO SCH (08:23)
[2022-04-29] MEDS: OLANZapine 10 MG TABLET PO SCH ×2 (08:23→16:36)
[2022-04-29] MEDS: BECLOMETHASONE DIPR HFA 40 MCG/PUFF 10.6 GM INHALER IH SCH ×2 (08:27→16:37)
[2022-04-29 09:07] VITALS: BP 111/63
[2022-04-29] MEDS: LORazepam 1 MG TABLET PO PRN ×2 (09:13→16:36)
[2022-04-29 20:15] VITALS: BP 110/66
[2022-04-29] MEDS: ATORVASTATIN CALCIUM 40 MG TABLET PO SCH (20:36)
[2022-04-29] MEDS: ZOLPIDEM TARTRATE 10 MG TABLET PO PRN (20:36)
[2022-04-30] MEDS: MetFORMIN HCL 500 MG TABLET PO SCH ×2 (06:55→16:06)
[2022-04-30 08:19] VITALS: BP 106/62
[2022-04-30] MEDS: FLUoxetine HCL 20 MG CAPSULE PO SCH (08:23)
[2022-04-30] MEDS: METOPROLOL SUCCINATE 25 MG ER TABLET PO SCH (08:23)
[2022-04-30] MEDS: AmLODIPine BESYLATE 10 MG TABLET PO SCH (08:23)
[2022-04-30] MEDS: DIVALPROEX SODIUM 250 MG ER TABLET PO SCH ×2 (08:23→16:06)
[2022-04-30] MEDS: FUROSEMIDE 40 MG TABLET PO SCH ×2 (08:23→16:11)
[2022-04-30] MEDS: DiphenhydrAMINE HCL 25 MG CAPSULE PO SCH ×2 (08:23→16:06)
[2022-04-30] MEDS: OLANZapine 10 MG TABLET PO SCH ×2 (08:23→16:06)
[2022-04-30] MEDS: CETIRIZINE HCL 10 MG TABLET PO SCH (08:23)
[2022-04-30] MEDS: BECLOMETHASONE DIPR HFA 40 MCG/PUFF 10.6 GM INHALER IH SCH ×2 (08:24→16:13)
[2022-04-30 10:36] LABS: GLUCOMETER DEV NAME(LOC) POC.BV
[2022-04-30 20:16] VITALS: BP 110/64
[2022-04-30] MEDS: ATORVASTATIN CALCIUM 40 MG TABLET PO SCH (21:08)
[2022-05-01] MEDS: MetFORMIN HCL 500 MG TABLET PO SCH ×2 (06:27→16:47)
[2022-05-01] MEDS: FUROSEMIDE 40 MG TABLET PO SCH ×2 (08:17→16:47)
[2022-05-01] MEDS: CETIRIZINE HCL 10 MG TABLET PO SCH (08:17)
[2022-05-01] MEDS: METOPROLOL SUCCINATE 25 MG ER TABLET PO SCH (08:17)
[2022-05-01] MEDS: FLUoxetine HCL 20 MG CAPSULE PO SCH (08:17)
[2022-05-01] MEDS: DiphenhydrAMINE HCL 25 MG CAPSULE PO SCH ×2 (08:17→16:47)
[2022-05-01] MEDS: AmLODIPine BESYLATE 10 MG TABLET PO SCH (08:17)
[2022-05-01] MEDS: OLANZapine 10 MG TABLET PO SCH ×2 (08:17→16:47)
[2022-05-01] MEDS: DIVALPROEX SODIUM 250 MG ER TABLET PO SCH ×2 (08:18→16:47)
[2022-05-01 08:19] VITALS: BP 147/91
[2022-05-01] MEDS: BECLOMETHASONE DIPR HFA 40 MCG/PUFF 10.6 GM INHALER IH SCH ×2 (08:21→16:47)
[2022-05-01] MEDS: ATORVASTATIN CALCIUM 40 MG TABLET PO SCH (20:10)
[2022-05-01 20:39] VITALS: BP 106/67
[2022-05-01] MEDS: ZOLPIDEM TARTRATE 10 MG TABLET PO PRN (22:08)
[2022-05-02] MEDS: MetFORMIN HCL 500 MG TABLET PO SCH ×2 (06:06→16:05)
[2022-05-02] MEDS: DiphenhydrAMINE HCL 25 MG CAPSULE PO SCH ×2 (08:19→16:05)
[2022-05-02] MEDS: AmLODIPine BESYLATE 10 MG TABLET PO SCH (08:19)
[2022-05-02] MEDS: DIVALPROEX SODIUM 250 MG ER TABLET PO SCH ×2 (08:19→16:05)
[2022-05-02] MEDS: FLUoxetine HCL 20 MG CAPSULE PO SCH (08:19)
[2022-05-02] MEDS: CETIRIZINE HCL 10 MG TABLET PO SCH (08:19)
[2022-05-02] MEDS: LORazepam 1 MG TABLET PO PRN ×2 (08:19→16:05)
[2022-05-02] MEDS: OLANZapine 10 MG TABLET PO SCH ×2 (08:19→16:06)
[2022-05-02] MEDS: FUROSEMIDE 40 MG TABLET PO SCH ×2 (08:19→16:06)
[2022-05-02] MEDS: BECLOMETHASONE DIPR HFA 40 MCG/PUFF 10.6 GM INHALER IH SCH ×2 (08:20→16:05)
[2022-05-02] MEDS: METOPROLOL SUCCINATE 25 MG ER TABLET PO SCH (08:20)
[2022-05-02 08:57] VITALS: BP 116/71
[2022-05-02] MEDS: ATORVASTATIN CALCIUM 40 MG TABLET PO SCH (20:03)
[2022-05-02 20:14] VITALS: BP 110/65
[2022-05-03] MEDS: MetFORMIN HCL 500 MG TABLET PO SCH ×2 (07:03→16:55)
[2022-05-03] MEDS: FLUoxetine HCL 20 MG CAPSULE PO SCH (08:12)
[2022-05-03] MEDS: DIVALPROEX SODIUM 250 MG ER TABLET PO SCH ×2 (08:12→16:55)
[2022-05-03] MEDS: METOPROLOL SUCCINATE 25 MG ER TABLET PO SCH (08:12)
[2022-05-03] MEDS: DiphenhydrAMINE HCL 25 MG CAPSULE PO SCH ×2 (08:12→16:55)
[2022-05-03] MEDS: OLANZapine 10 MG TABLET PO SCH ×2 (08:12→16:55)
[2022-05-03] MEDS: BECLOMETHASONE DIPR HFA 40 MCG/PUFF 10.6 GM INHALER IH SCH ×2 (08:12→16:55)
[2022-05-03] MEDS: CETIRIZINE HCL 10 MG TABLET PO SCH (08:12)
[2022-05-03] MEDS: FUROSEMIDE 40 MG TABLET PO SCH ×2 (08:12→16:55)
[2022-05-03] MEDS: AmLODIPine BESYLATE 10 MG TABLET PO SCH (08:12)
[2022-05-03 09:54] VITALS: BP 125/65
[2022-05-03] MEDS: ATORVASTATIN CALCIUM 40 MG TABLET PO SCH (20:03)
[2022-05-03 20:41] VITALS: BP 106/60
[2022-05-04] MEDS: MetFORMIN HCL 500 MG TABLET PO SCH ×2 (06:20→16:43)
[2022-05-04 08:04] VITALS: BP 115/71
[2022-05-04] MEDS: DiphenhydrAMINE HCL 25 MG CAPSULE PO SCH ×2 (10:25→16:43)
[2022-05-04] MEDS: AmLODIPine BESYLATE 10 MG TABLET PO SCH (10:25)
[2022-05-04] MEDS: METOPROLOL SUCCINATE 25 MG ER TABLET PO SCH (10:25)
[2022-05-04] MEDS: DIVALPROEX SODIUM 250 MG ER TABLET PO SCH ×2 (10:25→16:43)
[2022-05-04] MEDS: FLUoxetine HCL 20 MG CAPSULE PO SCH (10:26)
[2022-05-04] MEDS: OLANZapine 10 MG TABLET PO SCH ×2 (10:26→16:43)
[2022-05-04] MEDS: CETIRIZINE HCL 10 MG TABLET PO SCH (10:26)
[2022-05-04] MEDS: FUROSEMIDE 40 MG TABLET PO SCH ×2 (10:26→16:43)
[2022-05-04] MEDS: BECLOMETHASONE DIPR HFA 40 MCG/PUFF 10.6 GM INHALER IH SCH ×2 (10:47→16:43)
[2022-05-04 20:15] VITALS: BP 108/60
[2022-05-04] MEDS: ATORVASTATIN CALCIUM 40 MG TABLET PO SCH (21:31)
[2022-05-05] MEDS: MetFORMIN HCL 500 MG TABLET PO SCH ×2 (06:14→17:00)
[2022-05-05 08:27] VITALS: BP 99/61
[2022-05-05] MEDS: OLANZapine 10 MG TABLET PO SCH ×2 (09:07→17:00)
[2022-05-05] MEDS: FLUoxetine HCL 20 MG CAPSULE PO SCH (09:07)
[2022-05-05] MEDS: AmLODIPine BESYLATE 10 MG TABLET PO SCH (09:08)
[2022-05-05] MEDS: DiphenhydrAMINE HCL 25 MG CAPSULE PO SCH ×2 (09:08→17:00)
[2022-05-05] MEDS: DIVALPROEX SODIUM 250 MG ER TABLET PO SCH ×2 (09:08→17:00)
[2022-05-05] MEDS: METOPROLOL SUCCINATE 25 MG ER TABLET PO SCH (09:08)
[2022-05-05] MEDS: FUROSEMIDE 40 MG TABLET PO SCH ×2 (09:11→17:00)
[2022-05-05] MEDS: CETIRIZINE HCL 10 MG TABLET PO SCH (09:11)
[2022-05-05 09:12] VITALS: BP 123/65
[2022-05-05] MEDS: BECLOMETHASONE DIPR HFA 40 MCG/PUFF 10.6 GM INHALER IH SCH ×2 (09:12→17:01)
[2022-05-05] MEDS ORDERED: METO25XL PO (15:49)
[2022-05-05] MEDS: ATORVASTATIN CALCIUM 40 MG TABLET PO SCH (20:09)
[2022-05-05 20:11] VITALS: BP 103/65
[2022-05-06 04:41] LABS: GLUCOMETER DEV NAME(LOC) POC.BV
[2022-05-06] MEDS: MetFORMIN HCL 500 MG TABLET PO SCH (06:37)
[2022-05-06 07:51] LABS: GLUCOMETER DEV NAME(LOC) POC.BV
[2022-05-06] MEDS: FLUoxetine HCL 20 MG CAPSULE PO SCH (08:17)
[2022-05-06] MEDS: OLANZapine 10 MG TABLET PO SCH (08:18)
[2022-05-06] MEDS: METOPROLOL SUCCINATE 25 MG ER TABLET PO SCH (08:18)
[2022-05-06] MEDS: DIVALPROEX SODIUM 250 MG ER TABLET PO SCH (08:18)
[2022-05-06] MEDS: AmLODIPine BESYLATE 10 MG TABLET PO SCH (08:18)
[2022-05-06] MEDS: DiphenhydrAMINE HCL 25 MG CAPSULE PO SCH (08:18)
[2022-05-06 08:19] VITALS: BP 109/66
[2022-05-06] MEDS: CETIRIZINE HCL 10 MG TABLET PO SCH (08:19)
[2022-05-06] MEDS: FUROSEMIDE 40 MG TABLET PO SCH (08:19)
[2022-05-06] MEDS: BECLOMETHASONE DIPR HFA 40 MCG/PUFF 10.6 GM INHALER IH SCH (08:19)
== END 2022-05-06 16:28 | DRG 750 ==
LOC: EMS 19:42 → B3A 03-20 12:59 → B2X 04-02 22:31 → B3A 04-03 13:07
PROVIDERS: ADMIT Psychiatry & Neurology Child & Adolescent Psychiatry; ATTEND Psychiatry & Neurology Child & Adolescent Psychiatry
DX: F20.9 Schizophrenia, unspecified (principal); R45.850 Homicidal ideations; E11.9 Type 2 diabetes mellitus without complications; E78.5 Hyperlipidemia, unspecified; E87.6 Hypokalemia; F10.10 Alcohol abuse, uncomplicated; D64.9 Anemia, unspecified; Z20.822 Contact with and (suspected) exposure to COVID-19; I10 Essential (primary) hypertension; J45.909 Unspecified asthma, uncomplicated; K21.9 Gastro-esophageal reflux disease without esophagitis; Z59.00 Homelessness unspecified; Z78.1 Physical restraint status; Z88.8 Allergy status to other drugs, medicaments and biological substances; Z71.41 Alcohol abuse counseling and surveillance of alcoholic
CPT/HCPCS: 71045; 71046; 80048; 80053; 80164; 81001; 82962; 83036; 85025; 87086; 87186; 99291; G0480; J1200; J1630; J2060; J3230; J3535; 36415-L1; 36415-TC